=== PATIENT | male | born 1975 | race Two or more races ===

== ENCOUNTER 2022-02-09 09:47 | Outpatient (REF) | payer OTHER, SELFPAY ==
[2022-02-09 11:46] LABS: MANUAL DIFF FLAG NO
[2022-02-09 12:37] LABS: Basophils Percent Auto 0.3 % (0-2); Eosinophils Absolute Auto 0.1 X10*3/uL (0.0-0.4); Hematocrit 39.8 % (42.0-52.0); Hemoglobin 12.7 g/dl (14.0-18.0); Imm Gran Abs Auto 0.15 X10*3/uL (0.00-0.03); Imm Gran Pct Auto 2.1 % (0.0-0.4); Lymphocytes Absolute Auto 1.1 X10*3/uL (1.2-4.9); Lymphocytes Percent Auto 14.6 % (20-40); Mean Corpuscular HGB Conc 31.9 g/dl (31.0-36.0); Mean Corpuscular Volume 78.3 fL (80.0-98.0); Mean Platelet Volume 9.8 fL (9.4-12.4); Monocytes Absolute Auto 0.9 X10*3/uL (0.1-1.2); Monocytes Percent Auto 12.4 % (2-11); Neutrophils Absolute Auto 5.1 x10*3/uL (2.0-8.3); Neutrophils Percent Auto 69.6 % (45-73); Platelet Count 367 X10*3/uL (160-400); Red Blood Count 5.08 X10*6/uL (4.60-5.80); Red Cell Distribution Width 13.5 % (11.0-16.0); White Blood Count 7.3 X10*3/uL (4.8-10.8)
[2022-02-09 12:40] LABS: Appearance Urine HAZY; Color Urine YELLOW; Glucose Urine UA NEG (NEG); Leukocyte Esterase Urine NEG (NEG); Nitrite Urine NEG (NEG); Specific Gravity - Urine >= 1.030 (1.005-1.025); Urine Blood 3+ (NEG); Urine Ketones 15 MG/DL (NEG); Urine Protein 2+ MG/DL (NEG-TRACE)
[2022-02-09 13:11] LABS: Alanine Aminotransferase 292 U/L (0-40); Albumin Level 3.3 g/dL (3.5-5.0); Alkaline Phosphatase 55 U/L (39-117); Anion Gap 10 (12-20); Aspartate Amino Transferase 1015 U/L (5-37); Bilirubin Total 0.7 mg/dL (0.0-1.0); Blood Urea Nitrogen 10 mg/dL (9-16); Carbon Dioxide 29 mmol/L (22-29); Chloride 102 mmol/L (96-108); Estimated Glomerular Filt Rate > 60; Glucose Random 84 mg/dL (60-115); Potassium 4.9 mmol/L (3.3-5.1); Sodium 136 mmol/L (135-145); Total Protein 6.1 g/dL (6.5-8.0)
[2022-02-09 13:29] LABS: Thyroid Stimulating Hormone 1.99 uIU/mL (0.32-4.0)
[2022-02-09 13:57] LABS: WBC Urine 0 /HPF (0-4)
[2022-02-09 13:58] LABS: Mucus Urine 2+ /LPF
[2022-02-09 14:20] LABS: Creatinine Urine 151.78 mg/dL; Protein/Creatinine Ratio, Ur 1.13 (<0.2); Total Protein Urine Random 171 mg/dL (<12)
[2022-02-10 05:01] LABS: Hepatitis A Antibody IgG REACTIVE (Nonreactive); Hepatitis A Antibody IgM 0.44 Index (0-0.79); ~Hepatitis A Antibody IgG 8.59 S/CO (0.00-0.99); ~Hepatitis A Antibody IgM Nonreactive (Nonreactive)
[2022-02-10 20:07] LABS: Complement C3 104 mg/dL (82-185)
[2022-02-11 22:12] LABS: TS Negative Control Passed; TS Panel A 0; TS Panel B 0; TS Positive Control Passed; TSpotTB Negative (Negative)
[2022-02-14 14:50] LABS: Anti DNA DS Antibody <1 IU/mL; Antibody to SS-A Antigen <1.0 NEG AI (<1.0 NEG); Antibody to SS-B Antigen <1.0 NEG AI (<1.0 NEG); SM/Ribonucleoprotein Ab <1.0 NEG AI (<1.0 NEG); Smith Protein <1.0 NEG AI (<1.0 NEG)
[2022-02-21 19:16] LABS: EJ Autoantibodies NOT DETECTED (NOT DETECTED); JO-1 Antibody <1.0 NEG AI (<1.0 NEG); MI 2 Autoantibodies NOT DETECTED (NOT DETECTED); OJ Autoantibodies NOT DETECTED (NOT DETECTED); PL 12 Autoantibodies NOT DETECTED (NOT DETECTED); PL 7 Autoantibodies NOT DETECTED (NOT DETECTED)
== END 2022-02-09 09:48 | disposition home or self-care (01) ==
LOC: HO.LAB 09:47
PROVIDERS: Visit Provider Internal Medicine Rheumatology
DX: M62.82 Rhabdomyolysis (principal); M62.81 Muscle weakness (generalized); R74.8 Abnormal levels of other serum enzymes; R74.01 Elevation of levels of liver transaminase levels; R21 Rash and other nonspecific skin eruption; R76.8 Other specified abnormal immunological findings in serum
CPT/HCPCS: 36415; 80053; 81001; 82550; 84156; 84443; 85025; 86140; 86160; 86225; 86235; 86481; 86708; 86709; 99202

== ENCOUNTER 2022-02-13 12:10 | Outpatient (REF) | payer OTHER, SELFPAY ==
[2022-02-13 13:39] LABS: Anion Gap 14 (12-20); Blood Urea Nitrogen 11 mg/dL (9-16); Calcium 9.4 mg/dL (8.4-10.2); Carbon Dioxide 25 mmol/L (22-29); Chloride 102 mmol/L (96-108); Estimated Glomerular Filt Rate > 60; Glucose Random 111 mg/dL (60-115); Potassium 4.2 mmol/L (3.3-5.1); Sodium 137 mmol/L (135-145)
[2022-02-13 14:02] LABS: Appearance Urine CLEAR; Color Urine YELLOW; Glucose Urine UA NEG (NEG); Leukocyte Esterase Urine NEG (NEG); Nitrite Urine NEG (NEG); Specific Gravity - Urine <= 1.005 (1.005-1.025); Urine Blood 3+ (NEG); Urine Ketones NEG (NEG); Urine Protein TRACE MG/DL (NEG-TRACE)
[2022-02-13 14:26] LABS: Squamous Epithelial Cell Urine TRACE /LPF; WBC Urine 0 /HPF (0-4)
== END 2022-02-13 12:11 | disposition home or self-care (01) ==
LOC: HO.LAB 12:10
PROVIDERS: Visit Provider Internal Medicine Rheumatology
DX: R74.8 Abnormal levels of other serum enzymes (principal); M62.82 Rhabdomyolysis
CPT/HCPCS: 36415; 80048; 81001; 82550

== ENCOUNTER 2022-02-24 13:14 | Outpatient (REF) | payer OTHER, SELFPAY ==
[2022-02-24 14:30] LABS: Anion Gap 11 (12-20); Blood Urea Nitrogen 13 mg/dL (9-16); Calcium 9.2 mg/dL (8.4-10.2); Carbon Dioxide 28 mmol/L (22-29); Chloride 101 mmol/L (96-108); Estimated Glomerular Filt Rate > 60; Glucose Random 101 mg/dL (60-115); Potassium 4.4 mmol/L (3.3-5.1); Sodium 136 mmol/L (135-145)
[2022-02-24 14:35] LABS: Appearance Urine CLEAR; Color Urine STRAW; Glucose Urine UA NEG (NEG); Leukocyte Esterase Urine NEG (NEG); Nitrite Urine NEG (NEG); PH 5.5 (5.0-8.0); Specific Gravity - Urine <= 1.005 (1.005-1.025); Urine Blood 3+ (NEG); Urine Ketones NEG (NEG); Urine Protein NEG (NEG-TRACE)
[2022-02-24 14:46] LABS: Squamous Epithelial Cell Urine TRACE /LPF; WBC Urine 0 /HPF (0-4)
== END 2022-02-24 13:15 | disposition home or self-care (01) ==
LOC: HO.LAB 13:14
PROVIDERS: Visit Provider Internal Medicine Rheumatology
DX: M62.82 Rhabdomyolysis (principal); R74.8 Abnormal levels of other serum enzymes; R76.8 Other specified abnormal immunological findings in serum; M62.81 Muscle weakness (generalized); Z79.899 Other long term (current) drug therapy
CPT/HCPCS: 36415; 80048; 81001; 82550

== ENCOUNTER → 2022-02-28 08:59 | Outpatient (BNVA) | payer OTHER, SELFPAY | PROVIDERS: Visit Provider Internal Medicine Rheumatology | DX: M33.90 Dermatopolymyositis, unspecified, organ involvement unspecified (principal); R74.01 Elevation of levels of liver transaminase levels; R13.10 Dysphagia, unspecified; R76.8 Other specified abnormal immunological findings in serum; Z79.899 Other long term (current) drug therapy | CPT/HCPCS: 99212 ==

== ENCOUNTER 2022-03-17 10:08 | Outpatient (REF) | payer OTHER, SELFPAY ==
[2022-03-17 10:19] LABS: MANUAL DIFF FLAG NO
[2022-03-17 10:41] LABS: Basophils Percent Auto 0.1 % (0-2); Eosinophils Percent Auto 0.2 % (0-4); Hematocrit 42.6 % (42.0-52.0); Hemoglobin 13.2 g/dl (14.0-18.0); Imm Gran Abs Auto 0.28 X10*3/uL (0.00-0.03); Imm Gran Pct Auto 2.5 % (0.0-0.4); Lymphocytes Percent Auto 18.4 % (20-40); Mean Corpuscular Hemoglobin 25.3 pg (27.0-33.0); Mean Corpuscular Volume 81.8 fL (80.0-98.0); Monocytes Absolute Auto 0.9 X10*3/uL (0.1-1.2); Monocytes Percent Auto 8.5 % (2-11); Neutrophils Absolute Auto 7.7 x10*3/uL (2.0-8.3); Neutrophils Percent Auto 70.3 % (45-73); Platelet Count 309 X10*3/uL (160-400); Red Blood Count 5.21 X10*6/uL (4.60-5.80)
[2022-03-17 11:11] LABS: Anion Gap 12 (12-20); Blood Urea Nitrogen 15 mg/dL (9-16); Calcium 9.2 mg/dL (8.4-10.2); Carbon Dioxide 28 mmol/L (22-29); Chloride 101 mmol/L (96-108); Estimated Glomerular Filt Rate > 60; Glucose Random 105 mg/dL (60-115); Potassium 4.7 mmol/L (3.3-5.1); Sodium 136 mmol/L (135-145)
[2022-03-17 11:25] LABS: Appearance Urine CLEAR; Color Urine YELLOW; Glucose Urine UA NEG (NEG); Leukocyte Esterase Urine NEG (NEG); Nitrite Urine NEG (NEG); PH 5.5 (5.0-8.0); Urine Blood TRACE (NEG); Urine Ketones NEG (NEG); Urine Protein NEG (NEG-TRACE)
[2022-03-17 11:34] LABS: PSA,Total (Free>4and<10) 0.27 ng/mL (0.00-4.00)
[2022-03-17 12:22] LABS: RBC Urine 0-2 /HPF (0); Squamous Epithelial Cell Urine TRACE /LPF; WBC Urine 0-2 /HPF (0-4)
== END 2022-03-17 10:09 | disposition home or self-care (01) ==
LOC: HO.LAB 10:08
PROVIDERS: PCP Physician Assistant; Visit Provider Internal Medicine Rheumatology
DX: Z12.5 Encounter for screening for malignant neoplasm of prostate (principal); M33.90 Dermatopolymyositis, unspecified, organ involvement unspecified; R35.0 Frequency of micturition; Z79.899 Other long term (current) drug therapy
CPT/HCPCS: 36415; 80048; 81001; 82550; 84153; 85025

== ENCOUNTER 2022-03-20 09:11 | Outpatient (REF) | payer OTHER, SELFPAY | END 2022-03-20 09:12 | disposition home or self-care (01) | LOC: HO.MDS 09:11 | PROVIDERS: Visit Provider Internal Medicine Rheumatology | DX: M33.90 Dermatopolymyositis, unspecified, organ involvement unspecified (principal) | CPT/HCPCS: 96365; 96366; J1569 ==

== ENCOUNTER 2022-03-21 09:07 | Outpatient (REF) | payer OTHER, SELFPAY | END 2022-03-21 09:08 | disposition home or self-care (01) | LOC: HO.MDS 09:07 | PROVIDERS: Visit Provider Internal Medicine Rheumatology | DX: M33.90 Dermatopolymyositis, unspecified, organ involvement unspecified (principal) | CPT/HCPCS: 96365; 96366; J1569 ==

== ENCOUNTER → 2022-03-22 08:51 | Outpatient (BNVA) | payer OTHER, SELFPAY | PROVIDERS: PCP Physician Assistant; Visit Provider Internal Medicine Rheumatology | DX: M33.90 Dermatopolymyositis, unspecified, organ involvement unspecified (principal); R21 Rash and other nonspecific skin eruption; Z79.899 Other long term (current) drug therapy | CPT/HCPCS: 99212 ==

== ENCOUNTER 2022-04-03 10:07 | Outpatient (REF) | payer OTHER, SELFPAY ==
[2022-04-03 10:17] LABS: MANUAL DIFF FLAG NO
[2022-04-03 10:46] LABS: Basophils Percent Auto 0.3 % (0-2); Eosinophils Percent Auto 0.4 % (0-4); Hematocrit 43.2 % (42.0-52.0); Hemoglobin 13.4 g/dl (14.0-18.0); Imm Gran Abs Auto 0.13 X10*3/uL (0.00-0.03); Imm Gran Pct Auto 1.2 % (0.0-0.4); Lymphocytes Absolute Auto 1.8 X10*3/uL (1.2-4.9); Mean Corpuscular Hemoglobin 25.6 pg (27.0-33.0); Mean Corpuscular Volume 82.6 fL (80.0-98.0); Mean Platelet Volume 9.8 fL (9.4-12.4); Monocytes Absolute Auto 0.9 X10*3/uL (0.1-1.2); Monocytes Percent Auto 8.3 % (2-11); Neutrophils Absolute Auto 8.3 x10*3/uL (2.0-8.3); Neutrophils Percent Auto 73.8 % (45-73); Platelet Count 227 X10*3/uL (160-400); Red Blood Count 5.23 X10*6/uL (4.60-5.80); Red Cell Distribution Width 17.2 % (11.0-16.0); White Blood Count 11.2 X10*3/uL (4.8-10.8)
[2022-04-03 11:04] LABS: Alanine Aminotransferase 57 U/L (0-40); Albumin Level 3.7 g/dL (3.5-5.0); Alkaline Phosphatase 72 U/L (39-117); Anion Gap 12 (12-20); Aspartate Amino Transferase 69 U/L (5-37); Bilirubin Total 0.8 mg/dL (0.0-1.0); Blood Urea Nitrogen 12 mg/dL (9-16); Calcium 9.2 mg/dL (8.4-10.2); Carbon Dioxide 28 mmol/L (22-29); Chloride 102 mmol/L (96-108); Estimated Glomerular Filt Rate > 60; Glucose Random 99 mg/dL (60-115); Potassium 4.7 mmol/L (3.3-5.1); Sodium 137 mmol/L (135-145); Total Protein 7.7 g/dL (6.5-8.0)
== END 2022-04-03 10:08 | disposition home or self-care (01) ==
LOC: HO.LAB 10:07
PROVIDERS: PCP Physician Assistant; Visit Provider Internal Medicine Rheumatology
DX: M33.90 Dermatopolymyositis, unspecified, organ involvement unspecified (principal); Z79.899 Other long term (current) drug therapy
CPT/HCPCS: 36415; 80053; 82550; 85025

== ENCOUNTER → 2022-04-04 08:11 | Outpatient (BNVA) | payer OTHER, SELFPAY | PROVIDERS: PCP Pediatrics Adolescent Medicine; Visit Provider Internal Medicine Rheumatology | DX: M33.90 Dermatopolymyositis, unspecified, organ involvement unspecified (principal); R74.01 Elevation of levels of liver transaminase levels; R13.10 Dysphagia, unspecified; Z79.52 Long term (current) use of systemic steroids; Z79.899 Other long term (current) drug therapy | CPT/HCPCS: 99212 ==

== ENCOUNTER 2022-04-17 08:58 | Outpatient (REF) | payer OTHER, SELFPAY | END 2022-04-17 08:59 | disposition home or self-care (01) | LOC: HO.MDS 08:58 | PROVIDERS: Visit Provider Internal Medicine Rheumatology | DX: M33.90 Dermatopolymyositis, unspecified, organ involvement unspecified (principal) | CPT/HCPCS: 96365; 96366; J1569 ==

== ENCOUNTER 2022-04-18 08:40 | Outpatient (REF) | payer OTHER, SELFPAY | END 2022-04-18 08:41 | disposition home or self-care (01) | LOC: HO.MDS 08:40 | PROVIDERS: PCP Physician Assistant; Visit Provider Internal Medicine Rheumatology | DX: M33.90 Dermatopolymyositis, unspecified, organ involvement unspecified (principal) | CPT/HCPCS: 96365; 96366; J1569 ==

== ENCOUNTER 2022-04-24 12:40 | Outpatient (REF) | payer OTHER, SELFPAY ==
[2022-04-24 12:54] LABS: MANUAL DIFF FLAG NO
[2022-04-24 13:25] LABS: Basophils Percent Auto 0.4 % (0-2); Eosinophils Absolute Auto 0.1 X10*3/uL (0.0-0.4); Eosinophils Percent Auto 0.8 % (0-4); Hematocrit 43.8 % (42.0-52.0); Hemoglobin 13.7 g/dl (14.0-18.0); Imm Gran Abs Auto 0.09 X10*3/uL (0.00-0.03); Imm Gran Pct Auto 1.2 % (0.0-0.4); Lymphocytes Absolute Auto 1.4 X10*3/uL (1.2-4.9); Lymphocytes Percent Auto 18.3 % (20-40); Mean Corpuscular HGB Conc 31.3 g/dl (31.0-36.0); Mean Corpuscular Hemoglobin 25.6 pg (27.0-33.0); Mean Corpuscular Volume 81.9 fL (80.0-98.0); Mean Platelet Volume 9.3 fL (9.4-12.4); Monocytes Absolute Auto 0.6 X10*3/uL (0.1-1.2); Monocytes Percent Auto 8.3 % (2-11); Neutrophils Absolute Auto 5.5 x10*3/uL (2.0-8.3); Platelet Count 256 X10*3/uL (160-400); Red Blood Count 5.35 X10*6/uL (4.60-5.80); Red Cell Distribution Width 16.7 % (11.0-16.0); White Blood Count 7.7 X10*3/uL (4.8-10.8)
[2022-04-24 13:42] LABS: Alanine Aminotransferase 21 U/L (0-40); Albumin Level 3.5 g/dL (3.5-5.0); Alkaline Phosphatase 58 U/L (39-117); Anion Gap 12 (12-20); Aspartate Amino Transferase 26 U/L (5-37); Bilirubin Total 0.7 mg/dL (0.0-1.0); Blood Urea Nitrogen 13 mg/dL (9-16); C Reactive Protein 1.98 mg/dL (< or = 0.50); Calcium 9.4 mg/dL (8.4-10.2); Carbon Dioxide 29 mmol/L (22-29); Chloride 102 mmol/L (96-108); Estimated Glomerular Filt Rate > 60; Glucose Random 86 mg/dL (60-115); Sodium 138 mmol/L (135-145); Total Protein 8.7 g/dL (6.5-8.0)
== END 2022-04-24 12:41 | disposition home or self-care (01) ==
LOC: HO.LAB 12:40
PROVIDERS: Visit Provider Internal Medicine Rheumatology
DX: M33.90 Dermatopolymyositis, unspecified, organ involvement unspecified (principal); R74.01 Elevation of levels of liver transaminase levels; Z79.899 Other long term (current) drug therapy
CPT/HCPCS: 36415; 80053; 82550; 85025; 86140

== ENCOUNTER → 2022-04-25 09:33 | Outpatient (BNVA) | payer OTHER, SELFPAY | PROVIDERS: PCP Physician Assistant; Visit Provider Internal Medicine Rheumatology | DX: M33.90 Dermatopolymyositis, unspecified, organ involvement unspecified (principal); Z79.899 Other long term (current) drug therapy | CPT/HCPCS: 99212 ==

== ENCOUNTER 2022-05-24 08:52 | Outpatient (REF) | payer OTHER, SELFPAY | END 2022-05-24 08:53 | disposition home or self-care (01) | LOC: HO.MDS 08:52 | PROVIDERS: PCP Physician Assistant; Visit Provider Internal Medicine Rheumatology | DX: M33.90 Dermatopolymyositis, unspecified, organ involvement unspecified (principal) | CPT/HCPCS: 96365; 96366; J1569 ==

== ENCOUNTER 2022-05-25 06:58 | Outpatient (REF) | payer OTHER, SELFPAY | END 2022-05-25 06:59 | disposition home or self-care (01) | LOC: HO.MDS 06:58 | PROVIDERS: Visit Provider Internal Medicine Rheumatology | DX: M33.90 Dermatopolymyositis, unspecified, organ involvement unspecified (principal) | CPT/HCPCS: 96365; 96366; J1569 ==

== ENCOUNTER → 2022-05-31 11:02 | Outpatient (BNVA) | payer OTHER, SELFPAY | PROVIDERS: PCP Physician Assistant; Referring Provider Physician Assistant; Visit Provider Nurse Practitioner | DX: R13.10 Dysphagia, unspecified (principal); M33.90 Dermatopolymyositis, unspecified, organ involvement unspecified | CPT/HCPCS: 99202; 99212 ==

== ENCOUNTER 2022-06-12 11:42 | Outpatient (REF) | payer OTHER, SELFPAY ==
[2022-06-12 11:49] LABS: MANUAL DIFF FLAG NO
[2022-06-12 12:01] LABS: Basophils Percent Auto 0.4 % (0-2); Eosinophils Absolute Auto 0.1 X10*3/uL (0.0-0.4); Eosinophils Percent Auto 0.6 % (0-4); Hematocrit 47.7 % (42.0-52.0); Imm Gran Abs Auto 0.13 X10*3/uL (0.00-0.03); Imm Gran Pct Auto 1.2 % (0.0-0.4); Lymphocytes Absolute Auto 1.5 X10*3/uL (1.2-4.9); Lymphocytes Percent Auto 13.5 % (20-40); Mean Corpuscular HGB Conc 31.4 g/dl (31.0-36.0); Mean Corpuscular Hemoglobin 25.8 pg (27.0-33.0); Monocytes Absolute Auto 1.2 X10*3/uL (0.1-1.2); Monocytes Percent Auto 10.6 % (2-11); Neutrophils Absolute Auto 8.1 x10*3/uL (2.0-8.3); Neutrophils Percent Auto 73.7 % (45-73); Platelet Count 301 X10*3/uL (160-400); Red Blood Count 5.82 X10*6/uL (4.60-5.80); Red Cell Distribution Width 14.6 % (11.0-16.0)
== END 2022-06-12 11:43 | disposition home or self-care (01) ==
LOC: HO.LAB 11:42
PROVIDERS: Visit Provider Internal Medicine Rheumatology
DX: R13.10 Dysphagia, unspecified (principal); M33.90 Dermatopolymyositis, unspecified, organ involvement unspecified; Z79.899 Other long term (current) drug therapy
CPT/HCPCS: 36415; 82550; 85025; 99212

== ENCOUNTER 2022-06-27 07:16 | Outpatient (REF) | payer OTHER, SELFPAY | END 2022-06-27 07:17 | disposition home or self-care (01) | LOC: HO.MDS 07:16 | PROVIDERS: Visit Provider Internal Medicine Rheumatology | DX: M33.90 Dermatopolymyositis, unspecified, organ involvement unspecified (principal); L40.9 Psoriasis, unspecified | CPT/HCPCS: 96365; 96366; J1569 ==

== ENCOUNTER 2022-06-28 07:05 | Outpatient (REF) | payer OTHER, SELFPAY | END 2022-06-28 07:06 | disposition home or self-care (01) | LOC: HO.MDS 07:05 | PROVIDERS: Visit Provider Internal Medicine Rheumatology | DX: M33.90 Dermatopolymyositis, unspecified, organ involvement unspecified (principal) | CPT/HCPCS: 96365; 96366; J1569 ==

== ENCOUNTER 2022-07-10 16:32 | Outpatient (REF) | payer OTHER, SELFPAY ==
[2022-07-10 16:44] LABS: MANUAL DIFF FLAG NO
[2022-07-10 16:53] LABS: Basophils Percent Auto 0.4 % (0-2); Hematocrit 43.5 % (42.0-52.0); Hemoglobin 13.7 g/dl (14.0-18.0); Imm Gran Abs Auto 0.21 X10*3/uL (0.00-0.03); Imm Gran Pct Auto 2.2 % (0.0-0.4); Lymphocytes Absolute Auto 0.7 X10*3/uL (1.2-4.9); Lymphocytes Percent Auto 7.5 % (20-40); Mean Corpuscular HGB Conc 31.5 g/dl (31.0-36.0); Mean Corpuscular Hemoglobin 25.8 pg (27.0-33.0); Mean Corpuscular Volume 81.8 fL (80.0-98.0); Mean Platelet Volume 9.2 fL (9.4-12.4); Monocytes Absolute Auto 0.3 X10*3/uL (0.1-1.2); Monocytes Percent Auto 2.9 % (2-11); Neutrophils Absolute Auto 8.2 x10*3/uL (2.0-8.3); Platelet Count 303 X10*3/uL (160-400); Red Blood Count 5.32 X10*6/uL (4.60-5.80); Red Cell Distribution Width 13.9 % (11.0-16.0); White Blood Count 9.4 X10*3/uL (4.8-10.8)
== END 2022-07-10 16:33 | disposition home or self-care (01) ==
LOC: HO.LAB 16:32
PROVIDERS: Visit Provider Internal Medicine Rheumatology
DX: M33.90 Dermatopolymyositis, unspecified, organ involvement unspecified (principal); L30.9 Dermatitis, unspecified; R21 Rash and other nonspecific skin eruption; Z79.899 Other long term (current) drug therapy
CPT/HCPCS: 36415; 82550; 85025; 99212

== ENCOUNTER → 2022-07-25 07:48 | Outpatient (BNVA) | payer OTHER, SELFPAY | PROVIDERS: PCP Physician Assistant; Visit Provider Internal Medicine Rheumatology | DX: M33.90 Dermatopolymyositis, unspecified, organ involvement unspecified (principal); Z79.899 Other long term (current) drug therapy | CPT/HCPCS: 99212 ==

== ENCOUNTER 2022-07-26 07:07 | Outpatient (REF) | payer OTHER, SELFPAY | END 2022-07-26 07:08 | disposition home or self-care (01) | LOC: HO.MDS 07:07 | PROVIDERS: Visit Provider Internal Medicine Rheumatology | DX: M33.90 Dermatopolymyositis, unspecified, organ involvement unspecified (principal) | CPT/HCPCS: 96365; 96366; J1569 ==

== ENCOUNTER 2022-07-27 07:07 | Outpatient (REF) | payer OTHER, SELFPAY | END 2022-07-27 07:08 | disposition home or self-care (01) | LOC: HO.MDS 07:07 | PROVIDERS: Visit Provider Internal Medicine Rheumatology | DX: M33.13 Other dermatomyositis without myopathy (principal) | CPT/HCPCS: 96365; 96366; J1569 ==

== ENCOUNTER 2022-08-01 07:15 | Outpatient (REF) | payer OTHER, SELFPAY | END 2022-08-01 07:16 | disposition home or self-care (01) | LOC: HO.MDS 07:15 | PROVIDERS: Visit Provider Internal Medicine Rheumatology | DX: M33.13 Other dermatomyositis without myopathy (principal) | CPT/HCPCS: 96365; 96366; J1569 ==

== ENCOUNTER 2022-08-02 07:09 | Outpatient (REF) | payer OTHER, SELFPAY | END 2022-08-02 07:10 | disposition home or self-care (01) | LOC: HO.MDS 07:09 | PROVIDERS: Visit Provider Internal Medicine Rheumatology | DX: M33.13 Other dermatomyositis without myopathy (principal) | CPT/HCPCS: 96365; 96366; J1569 ==

== ENCOUNTER 2022-08-03 07:10 | Outpatient (REF) | payer OTHER, SELFPAY | END 2022-08-03 07:11 | disposition home or self-care (01) | LOC: HO.MDS 07:10 | PROVIDERS: Visit Provider Internal Medicine Rheumatology | DX: M33.13 Other dermatomyositis without myopathy (principal) | CPT/HCPCS: 96365; 96366; J1569 ==

== ENCOUNTER 2022-08-08 10:25 | Outpatient (REF) | payer OTHER, SELFPAY ==
[2022-08-08 10:43] LABS: MANUAL DIFF FLAG NO
[2022-08-08 11:08] LABS: Basophils Percent Auto 0.3 % (0-2); Eosinophils Percent Auto 0.1 % (0-4); Hematocrit 47.8 % (42.0-52.0); Hemoglobin 14.7 g/dl (14.0-18.0); Imm Gran Pct Auto 1.5 % (0.0-0.4); Lymphocytes Absolute Auto 1.2 X10*3/uL (1.2-4.9); Lymphocytes Percent Auto 17.8 % (20-40); Mean Corpuscular HGB Conc 30.8 g/dl (31.0-36.0); Mean Corpuscular Hemoglobin 25.8 pg (27.0-33.0); Mean Corpuscular Volume 83.9 fL (80.0-98.0); Mean Platelet Volume 9.3 fL (9.4-12.4); Monocytes Absolute Auto 0.6 X10*3/uL (0.1-1.2); Monocytes Percent Auto 8.8 % (2-11); Neutrophils Absolute Auto 4.9 x10*3/uL (2.0-8.3); Neutrophils Percent Auto 71.5 % (45-73); Platelet Count 193 X10*3/uL (160-400); Red Cell Distribution Width 15.6 % (11.0-16.0); White Blood Count 6.9 X10*3/uL (4.8-10.8)
== END 2022-08-08 10:26 | disposition home or self-care (01) ==
LOC: HO.LAB 10:25
PROVIDERS: PCP Physician Assistant; Visit Provider Internal Medicine Rheumatology
DX: M33.90 Dermatopolymyositis, unspecified, organ involvement unspecified (principal); Z79.899 Other long term (current) drug therapy
CPT/HCPCS: 36415; 82550; 85025

== ENCOUNTER 2022-08-18 11:52 | Outpatient (REF) | payer OTHER, SELFPAY ==
[2022-08-18 12:04] LABS: MANUAL DIFF FLAG NO
[2022-08-18 12:35] LABS: Basophils Percent Auto 0.1 % (0-2); Hematocrit 48.7 % (42.0-52.0); Hemoglobin 15.2 g/dl (14.0-18.0); Imm Gran Pct Auto 1.4 % (0.0-0.4); Lymphocytes Absolute Auto 0.8 X10*3/uL (1.2-4.9); Lymphocytes Percent Auto 10.7 % (20-40); Mean Corpuscular HGB Conc 31.2 g/dl (31.0-36.0); Mean Corpuscular Hemoglobin 26.2 pg (27.0-33.0); Mean Platelet Volume 9.1 fL (9.4-12.4); Monocytes Absolute Auto 0.5 X10*3/uL (0.1-1.2); Monocytes Percent Auto 6.6 % (2-11); Neutrophils Absolute Auto 5.9 x10*3/uL (2.0-8.3); Neutrophils Percent Auto 81.2 % (45-73); Platelet Count 256 X10*3/uL (160-400); Red Cell Distribution Width 15.8 % (11.0-16.0); White Blood Count 7.2 X10*3/uL (4.8-10.8)
== END 2022-08-18 11:53 | disposition home or self-care (01) ==
LOC: HO.LAB 11:52
PROVIDERS: PCP Physician Assistant; Visit Provider Internal Medicine Rheumatology
DX: M33.90 Dermatopolymyositis, unspecified, organ involvement unspecified (principal); Z79.899 Other long term (current) drug therapy
CPT/HCPCS: 36415; 82550; 85025

== ENCOUNTER → 2022-08-21 08:56 | Outpatient (BNVA) | payer OTHER, SELFPAY | PROVIDERS: PCP Physician Assistant; Referring Provider Physician Assistant; Visit Provider Internal Medicine Rheumatology | DX: M33.90 Dermatopolymyositis, unspecified, organ involvement unspecified (principal); Z79.899 Other long term (current) drug therapy | CPT/HCPCS: 99212 ==

== ENCOUNTER 2022-08-21 13:00 | Outpatient (RCR) | payer OTHER, SELFPAY ==
--- NOTE | 2022-07-31 13:58 | MHC.PT.EP ---
[facility] [place] [facility] [place] Office [place] Office [address] Dalia Tinsley [address] [phone] F: [phone] F: [phone] F: [phone] F: [phone] Physical Therapy Plan of Care Date of Evaluation: Date of Surgery: Diagnosis: Dermatomyositis - Upper body and lower body strengthening Assessment: Patient is a 46 year old R handed male who presents with s/s consistent with dermatomyositis with focus on upper body and lower body strengthening. He worked at [employer] before diagnosis with daily job demands including standing, walking, lifting, pushing. Patient past medical history is otherwise unremarkable. Current impairments include pain, posture, ROM, strength, activity tolerance and functional mobility. Functional limitations include decreased ability to stand, walk, lift, negotiate stairs, push, pull, squat and transfer. Patient is motivated with good rehab potential. Skilled PT will address impairments and functional limitations in order to achieve goals. Frequency and Duration: The patient will be seen 1x/week for 6 weeks Short Term Goals: I with HEP - 2 weeks Able to perform 8 sit <> stands in 30 seconds - 3 weeks Able to bike 12 minutes without rest at L4 - 3 weeks Manager Printing Goals: SPADI 60 or less out of 130 - 5 weeks LE and UE strength 4/5 grossly - 6 weeks Able to work 4 hour shifts without increased pain, with functional amount of fatigue - 6 weeks Treatment Plan: Modalities to reduce pain, spasms and effusion. Manual therapy to restore motion and function. Therapeutic exercise to improve strength and flexibility. Neuromuscular re-education for posture and balance. Therapeutic activities to return to functional activities of daily living. Electronically signed by: Erick Singh, PT Please sign and return to therapist. Thank you for your referral.
--- NOTE | 2022-09-05 11:16 | MHC.PT.DC ---
[facility] [place] Office [place] Office [place] Office [address] Dalia Tinsley [address] [phone] F: [phone] F: [phone] F: [phone] F: [phone] Physical Therapy Discharge Report Diagnosis: Dermatomyositis - Upper body and lower body strengthening Date of Surgery: Date of Evaluation: 07/31/22 Date of Discharge: 09/05/22 Treatments to Date: 6 Cancellations to Date: No Shows to Date: Discharge Status: Improved Function Independent with HEP Discharge Summary: He will continue exclusively with HEP at this time. He is able to tolerate increase in resistance or sets with exercises with fewer rest breaks showing gradually improving exercise tolerance/endurance. I consistently changed his program to work different muscle groups alternating to prevent fatigue. He still needed some cues with proper form consistently with lifting, as he lifts a lot at work. I am helping him build endurance to work on more lifting. Electronically signed by: Erick Singh PT Please sign and return to therapist. Thank you for your referral.
== END 2022-09-05 11:17 | disposition home or self-care (01) ==
LOC: HO.PTCHIC 13:00
PROVIDERS: PCP Physician Assistant; Visit Provider Internal Medicine Rheumatology
DX: M33.90 Dermatopolymyositis, unspecified, organ involvement unspecified (principal)
CPT/HCPCS: 97110; 97161; 97530

== ENCOUNTER 2022-08-28 07:01 | Outpatient (REF) | payer OTHER, SELFPAY | END 2022-08-28 07:02 | disposition home or self-care (01) | LOC: HO.MDS 07:01 | PROVIDERS: Visit Provider Internal Medicine Rheumatology | DX: M33.90 Dermatopolymyositis, unspecified, organ involvement unspecified (principal) | CPT/HCPCS: 96365; 96366; J1569 ==

== ENCOUNTER 2022-08-29 07:02 | Outpatient (REF) | payer OTHER, SELFPAY | END 2022-08-29 07:03 | disposition home or self-care (01) | LOC: HO.MDS 07:02 | PROVIDERS: Visit Provider Internal Medicine Rheumatology | DX: M33.90 Dermatopolymyositis, unspecified, organ involvement unspecified (principal) | CPT/HCPCS: 96365; 96366; J1569 ==

== ENCOUNTER 2022-08-30 07:05 | Outpatient (REF) | payer OTHER, SELFPAY | END 2022-08-30 07:06 | disposition home or self-care (01) | LOC: HO.MDS 07:05 | PROVIDERS: Visit Provider Internal Medicine Rheumatology | DX: M33.90 Dermatopolymyositis, unspecified, organ involvement unspecified (principal) | CPT/HCPCS: 96365; 96366; J1569 ==

== ENCOUNTER 2022-08-31 06:59 | Outpatient (REF) | payer OTHER, SELFPAY | END 2022-08-31 07:00 | disposition home or self-care (01) | LOC: HO.MDS 06:59 | PROVIDERS: Visit Provider Internal Medicine Rheumatology | DX: M33.90 Dermatopolymyositis, unspecified, organ involvement unspecified (principal) | CPT/HCPCS: 96365; 96366; J1569 ==

== ENCOUNTER 2022-09-01 06:59 | Outpatient (REF) | payer OTHER, SELFPAY | END 2022-09-01 07:00 | disposition home or self-care (01) | LOC: HO.MDS 06:59 | PROVIDERS: Visit Provider Internal Medicine Rheumatology | DX: M33.90 Dermatopolymyositis, unspecified, organ involvement unspecified (principal) | CPT/HCPCS: 96365; 96366; J1569 ==

== ENCOUNTER 2022-09-26 06:53 | Outpatient (REF) | payer OTHER, SELFPAY | END 2022-09-26 06:54 | disposition home or self-care (01) | LOC: HO.MDS 06:53 | PROVIDERS: Visit Provider Internal Medicine Rheumatology | DX: M33.90 Dermatopolymyositis, unspecified, organ involvement unspecified (principal); R13.10 Dysphagia, unspecified | CPT/HCPCS: 96365; 96366; J1569 ==

== ENCOUNTER 2022-09-27 06:48 | Outpatient (REF) | payer OTHER, SELFPAY | END 2022-09-27 06:49 | disposition home or self-care (01) | LOC: HO.MDS 06:48 | PROVIDERS: Visit Provider Internal Medicine Rheumatology | DX: M33.90 Dermatopolymyositis, unspecified, organ involvement unspecified (principal) | CPT/HCPCS: 96365; 96366; J1569 ==

== ENCOUNTER 2022-09-28 07:08 | Outpatient (REF) | payer OTHER, SELFPAY | END 2022-09-28 07:09 | disposition home or self-care (01) | LOC: HO.MDS 07:08 | PROVIDERS: Visit Provider Internal Medicine Rheumatology | DX: M33.90 Dermatopolymyositis, unspecified, organ involvement unspecified (principal) | CPT/HCPCS: 96365; 96366; J1569 ==

== ENCOUNTER 2022-09-29 06:50 | Outpatient (REF) | payer OTHER, SELFPAY ==
[2022-09-29 10:06] LABS: MANUAL DIFF FLAG NO
[2022-09-29 10:19] LABS: Basophils Percent Auto 0.4 % (0-2); Hematocrit 44.5 % (42.0-52.0); Hemoglobin 14.4 g/dl (14.0-18.0); Imm Gran Abs Auto 0.09 X10*3/uL (0.00-0.03); Imm Gran Pct Auto 1.2 % (0.0-0.4); Lymphocytes Absolute Auto 0.9 X10*3/uL (1.2-4.9); Lymphocytes Percent Auto 11.7 % (20-40); Mean Corpuscular HGB Conc 32.4 g/dl (31.0-36.0); Mean Corpuscular Hemoglobin 27.1 pg (27.0-33.0); Mean Corpuscular Volume 83.6 fL (80.0-98.0); Mean Platelet Volume 9.4 fL (9.4-12.4); Monocytes Absolute Auto 0.2 X10*3/uL (0.1-1.2); Monocytes Percent Auto 3.2 % (2-11); Neutrophils Absolute Auto 6.3 x10*3/uL (2.0-8.3); Neutrophils Percent Auto 83.5 % (45-73); Platelet Count 308 X10*3/uL (160-400); Red Blood Count 5.32 X10*6/uL (4.60-5.80); Red Cell Distribution Width 15.6 % (11.0-16.0); White Blood Count 7.5 X10*3/uL (4.8-10.8)
== END 2022-09-29 06:51 | disposition home or self-care (01) ==
LOC: HO.MDS 06:50
PROVIDERS: Visit Provider Internal Medicine Rheumatology
DX: M33.90 Dermatopolymyositis, unspecified, organ involvement unspecified (principal); Z79.899 Other long term (current) drug therapy
CPT/HCPCS: 36415; 82550; 85025; 96365; 96366; J1569

== ENCOUNTER 2022-10-02 06:42 | Outpatient (REF) | payer OTHER, SELFPAY | END 2022-10-02 06:43 | disposition home or self-care (01) | LOC: HO.MDS 06:42 | PROVIDERS: Visit Provider Internal Medicine Rheumatology | DX: M33.90 Dermatopolymyositis, unspecified, organ involvement unspecified (principal) | CPT/HCPCS: 96365; 96366; J1569 ==

== ENCOUNTER 2022-10-03 | Outpatient (REF) | payer OTHER, SELFPAY | END 2022-10-03 00:01 | disposition home or self-care (01) | LOC: CF | PROVIDERS: Visit Provider Internal Medicine Rheumatology | DX: F32.A Depression, unspecified (principal); L73.9 Follicular disorder, unspecified; M33.90 Dermatopolymyositis, unspecified, organ involvement unspecified; Z79.899 Other long term (current) drug therapy | CPT/HCPCS: 99212 ==

== ENCOUNTER 2022-10-16 13:57 | Outpatient (REF) | payer OTHER, SELFPAY ==
--- NOTE | ~2022-10-16 | FL_ITS ---
EXAMINATION: Modified BARIUM SWALLOW CLINICAL INFORMATION: Dysphagia COMPARISON: None TECHNIQUE: Following oral administration of various consistencies of food coated barium by speech therapist fluoroscopy-guided modified barium swallow was obtained in lateral projection with patient upright standing. FINDINGS: On oral administration of various consistencies of food such as puree, pudding, thick barium liquid solid food chicken and cookie all coated with barium there is normal oral mastication of solid food with normal propagation of bolus from the oral cavity through the pharynx into the proximal esophagus. No laryngeal penetration or aspiration seen. No retention of barium seen in the valleculae or piriform sinuses. FLUOROSCOPY TIME: 1.0 minutes DOSE AREA PRODUCT: 1.115 uGy-m2 (microgray-meter squared) FL/FL barium swallow modified IMPRESSION: Unremarkable modified barium swallow.
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
== END 2022-10-16 13:58 | disposition home or self-care (01) ==
LOC: HO.XRAY 13:57
PROVIDERS: Visit Provider Nurse Practitioner
DX: R13.10 Dysphagia, unspecified (principal); M33.90 Dermatopolymyositis, unspecified, organ involvement unspecified
CPT/HCPCS: 74230; 92611

== ENCOUNTER 2022-10-23 07:09 | Outpatient (REF) | payer OTHER, SELFPAY | END 2022-10-23 07:10 | disposition home or self-care (01) | LOC: HO.MDS 07:09 | PROVIDERS: Visit Provider Internal Medicine Rheumatology | DX: M33.90 Dermatopolymyositis, unspecified, organ involvement unspecified (principal) | CPT/HCPCS: 96365; 96366; J1569 ==

== ENCOUNTER 2022-10-24 06:49 | Outpatient (REF) | payer OTHER, SELFPAY | END 2022-10-24 06:50 | disposition home or self-care (01) | LOC: HO.MDS 06:49 | PROVIDERS: Visit Provider Internal Medicine Rheumatology | DX: M33.90 Dermatopolymyositis, unspecified, organ involvement unspecified (principal) | CPT/HCPCS: 96365; 96366; J1569 ==

== ENCOUNTER 2022-10-25 06:54 | Outpatient (REF) | payer OTHER, SELFPAY | END 2022-10-25 06:55 | disposition home or self-care (01) | LOC: HO.MDS 06:54 | PROVIDERS: Visit Provider Internal Medicine Rheumatology | DX: M33.90 Dermatopolymyositis, unspecified, organ involvement unspecified (principal) | CPT/HCPCS: 96365; 96366; J1569 ==

== ENCOUNTER 2022-10-26 06:53 | Outpatient (REF) | payer OTHER, SELFPAY | END 2022-10-26 06:54 | disposition home or self-care (01) | LOC: HO.MDS 06:53 | PROVIDERS: Visit Provider Internal Medicine Rheumatology | DX: M33.90 Dermatopolymyositis, unspecified, organ involvement unspecified (principal) | CPT/HCPCS: 96365; 96366; J1569 ==

== ENCOUNTER 2022-11-01 09:04 | Outpatient (REF) | payer OTHER, SELFPAY ==
--- NOTE | ~2022-11-01 | XR_ITS ---
EXAMINATION: XR CHEST CLINICAL INFORMATION: Chest pain COMPARISON: None TECHNIQUE: 2 frontal, one lateral radiograph FINDINGS: Borderline prominence of the cardiac silhouette. Trachea is central. Slight elevation the right hemidiaphragm. Mild right basilar bronchovascular crowding. No focal consolidation, effusion, edema or pneumothorax.. Thoracic spine spondylosis. XR/XR chest 2V IMPRESSION: Borderline prominence of the cardiac silhouette.. No acute cardiopulmonary process.
[2022-11-01 13:18] LABS: Alanine Aminotransferase 58 U/L (0-40); Albumin Level 3.7 g/dL (3.5-5.0); Alkaline Phosphatase 59 U/L (39-117); Anion Gap 15 (12-20); Aspartate Amino Transferase 40 U/L (5-37); Blood Urea Nitrogen 14 mg/dL (9-16); Calcium 9.4 mg/dL (8.4-10.2); Carbon Dioxide 25 mmol/L (22-29); Chloride 104 mmol/L (96-108); Estimated Glomerular Filt Rate > 60; Glucose Random 77 mg/dL (60-115); Potassium 4.6 mmol/L (3.3-5.1); Sodium 139 mmol/L (135-145); Total Protein 8.7 g/dL (6.5-8.0)
[2022-11-01 13:20] LABS: TSH reflex Free T4 1.57 uIU/mL (0.32-4.0)
[2022-11-01 14:53] LABS: Erythrocyte Sedimentation Rate 58 MM/HR (0-15)
== END 2022-11-01 09:05 | disposition home or self-care (01) ==
LOC: HO.XRAY 09:04
PROVIDERS: Internal Medicine Rheumatology; PCP Physician Assistant; Visit Provider Nurse Practitioner
DX: R13.10 Dysphagia, unspecified (principal); M33.90 Dermatopolymyositis, unspecified, organ involvement unspecified; K59.04 Chronic idiopathic constipation; R14.0 Abdominal distension (gaseous); R00.2 Palpitations; R07.9 Chest pain, unspecified; M95.4 Acquired deformity of chest and rib; K21.9 Gastro-esophageal reflux disease without esophagitis; Z79.899 Other long term (current) drug therapy
CPT/HCPCS: 36415; 71046; 80053; 82550; 84443; 85652; 87338; 99212

== ENCOUNTER 2022-11-20 06:45 | Outpatient (REF) | payer OTHER, SELFPAY | END 2022-11-20 06:46 | disposition home or self-care (01) | LOC: HO.MDS 06:45 | PROVIDERS: Visit Provider Internal Medicine Rheumatology | DX: M33.90 Dermatopolymyositis, unspecified, organ involvement unspecified (principal) | CPT/HCPCS: 96365; 96366; J1569 ==

== ENCOUNTER 2022-11-21 06:58 | Outpatient (REF) | payer OTHER, SELFPAY | END 2022-11-21 06:59 | disposition home or self-care (01) | LOC: HO.MDS 06:58 | PROVIDERS: Visit Provider Internal Medicine Rheumatology | DX: M33.90 Dermatopolymyositis, unspecified, organ involvement unspecified (principal) | CPT/HCPCS: 96365; 96366; J1569 ==

== ENCOUNTER 2022-11-22 06:53 | Outpatient (REF) | payer OTHER, SELFPAY | END 2022-11-22 06:54 | disposition home or self-care (01) | LOC: HO.MDS 06:53 | PROVIDERS: Visit Provider Internal Medicine Rheumatology | DX: M33.90 Dermatopolymyositis, unspecified, organ involvement unspecified (principal) | CPT/HCPCS: 96365; 96366; J1569 ==

== ENCOUNTER 2022-11-23 06:55 | Outpatient (REF) | payer OTHER, SELFPAY | END 2022-11-23 06:56 | disposition home or self-care (01) | LOC: HO.MDS 06:55 | PROVIDERS: Visit Provider Internal Medicine Rheumatology | DX: M33.90 Dermatopolymyositis, unspecified, organ involvement unspecified (principal) | CPT/HCPCS: 96365; 96366; J1569 ==

== ENCOUNTER → 2022-12-06 07:44 | Outpatient (BNVA) | payer OTHER, SELFPAY | PROVIDERS: PCP Physician Assistant; Visit Provider Internal Medicine Rheumatology | DX: M33.90 Dermatopolymyositis, unspecified, organ involvement unspecified (principal); R74.01 Elevation of levels of liver transaminase levels; R13.10 Dysphagia, unspecified; F32.A Depression, unspecified; Z79.899 Other long term (current) drug therapy | CPT/HCPCS: 99212 ==

== ENCOUNTER 2022-12-12 10:22 | Outpatient (REF) | payer OTHER, SELFPAY ==
[2022-12-12 11:58] LABS: MANUAL DIFF FLAG NO
[2022-12-12 13:18] LABS: Basophils Absolute Auto 0.1 X10*3/uL (0.0-0.2); Basophils Percent Auto 0.5 % (0-2); Eosinophils Absolute Auto 0.1 X10*3/uL (0.0-0.4); Eosinophils Percent Auto 0.5 % (0-4); Hematocrit 45.5 % (42.0-52.0); Hemoglobin 14.3 g/dl (14.0-18.0); Imm Gran Abs Auto 0.14 X10*3/uL (0.00-0.03); Imm Gran Pct Auto 1.5 % (0.0-0.4); Lymphocytes Absolute Auto 1.3 X10*3/uL (1.2-4.9); Lymphocytes Percent Auto 13.8 % (20-40); Mean Corpuscular HGB Conc 31.4 g/dl (31.0-36.0); Mean Corpuscular Volume 82.9 fL (80.0-98.0); Monocytes Absolute Auto 0.6 X10*3/uL (0.1-1.2); Monocytes Percent Auto 6.7 % (2-11); Neutrophils Absolute Auto 7.2 x10*3/uL (2.0-8.3); Platelet Count 357 X10*3/uL (160-400); Red Blood Count 5.49 X10*6/uL (4.60-5.80); Red Cell Distribution Width 13.7 % (11.0-16.0); White Blood Count 9.3 X10*3/uL (4.8-10.8)
[2022-12-12 14:17] LABS: TSH reflex Free T4 1.37 uIU/mL (0.32-4.0)
[2022-12-12 14:52] LABS: Alanine Aminotransferase 35 U/L (0-40); Albumin Level 3.7 g/dL (3.5-5.0); Alkaline Phosphatase 79 U/L (39-117); Anion Gap 15 (12-20); Aspartate Amino Transferase 28 U/L (5-37); Bilirubin Total 0.8 mg/dL (0.0-1.0); Blood Urea Nitrogen 10 mg/dL (9-16); C Reactive Protein 0.66 mg/dL (< or = 0.50); Calcium 9.4 mg/dL (8.4-10.2); Carbon Dioxide 25 mmol/L (22-29); Chloride 103 mmol/L (96-108); Estimated Glomerular Filt Rate > 60; Gamma Glutamyl Transpeptidase 20 U/L (11-51); Glucose Random 86 mg/dL (60-115); Potassium 4.6 mmol/L (3.3-5.1); Sodium 138 mmol/L (135-145); Total Protein 7.5 g/dL (6.5-8.0)
[2022-12-12 15:01] LABS: Ferritin 292 ng/mL (20-250)
[2022-12-13 05:59] LABS: HBc Num1 0.59 S/CO (0.00-0.79); HBsAGNum1 0.38 S/CO (0.00-0.99); HIV AB/AG Nonreactive (Nonreactive); HIV Num 1 0.06 S/CO (0.00-0.99); Hepatitis A Antibody IgM 0.17 Index (0-0.79); Hepatitis B Core Antibody Nonreactive (Nonreactive); Hepatitis B Surface Antigen Negative (Negative); ~HepC Num1 0.19 S/CO (0.00-0.79); ~Hepatitis A Antibody IgM Nonreactive (Nonreactive); ~Hepatitis B Surface Antibody REACTIVE (Nonreactive); ~Hepatitis C Antibody Nonreactive (Nonreactive)
[2022-12-14 13:23] LABS: Alpha Fetoprotein 2.8 ng/mL (<6.1)
[2022-12-15 15:23] LABS: Mitochondrial Antibodies NEGATIVE (NEGATIVE)
[2022-12-17 18:04] LABS: Smooth Muscle Antibody <20 U (<20)
== END 2022-12-12 10:23 | disposition home or self-care (01) ==
LOC: HO.LAB 10:22
PROVIDERS: Internal Medicine Rheumatology; PCP Physician Assistant; Referring Provider Physician Assistant; Visit Provider Nurse Practitioner
DX: M33.90 Dermatopolymyositis, unspecified, organ involvement unspecified (principal); K59.04 Chronic idiopathic constipation; K21.9 Gastro-esophageal reflux disease without esophagitis; R74.01 Elevation of levels of liver transaminase levels; A04.8 Other specified bacterial intestinal infections; R13.10 Dysphagia, unspecified; R14.0 Abdominal distension (gaseous); Z79.899 Other long term (current) drug therapy
CPT/HCPCS: 36415; 80053; 82105; 82550; 82728; 82977; 84443; 85025; 86015; 86140; 86255; 86256; 86704; 86706; 86709; 86803; 87340; 87389; 99212

== ENCOUNTER 2022-12-13 11:11 | Outpatient (REF) | payer OTHER, SELFPAY | END 2022-12-13 11:12 | disposition home or self-care (01) | LOC: HO.LNP 11:11 | PROVIDERS: Visit Provider Nurse Practitioner | DX: Z13.89 Encounter for screening for other disorder (principal) ==

== ENCOUNTER 2022-12-18 06:54 | Outpatient (REF) | payer OTHER, SELFPAY | END 2022-12-18 06:55 | disposition home or self-care (01) | LOC: HO.MDS 06:54 | PROVIDERS: Visit Provider Internal Medicine Rheumatology | DX: M33.90 Dermatopolymyositis, unspecified, organ involvement unspecified (principal) | CPT/HCPCS: 96365; 96366; J1569 ==

== ENCOUNTER 2022-12-19 06:59 | Outpatient (REF) | payer OTHER, SELFPAY | END 2022-12-19 07:00 | disposition home or self-care (01) | LOC: HO.MDS 06:59 | PROVIDERS: Visit Provider Internal Medicine Rheumatology | DX: M33.90 Dermatopolymyositis, unspecified, organ involvement unspecified (principal) | CPT/HCPCS: 96365; 96366; J1569 ==

== ENCOUNTER 2022-12-20 06:46 | Outpatient (REF) | payer OTHER, SELFPAY | END 2022-12-20 06:47 | disposition home or self-care (01) | LOC: HO.MDS 06:46 | PROVIDERS: Visit Provider Internal Medicine Rheumatology | DX: M33.90 Dermatopolymyositis, unspecified, organ involvement unspecified (principal) | CPT/HCPCS: 96365; 96366; J1569 ==

== ENCOUNTER 2022-12-21 06:39 | Outpatient (REF) | payer OTHER, SELFPAY | END 2022-12-21 06:40 | disposition home or self-care (01) | LOC: HO.MDS 06:39 | PROVIDERS: Visit Provider Internal Medicine Rheumatology | DX: M33.90 Dermatopolymyositis, unspecified, organ involvement unspecified (principal) | CPT/HCPCS: 96365; 96366; J1569 ==

== ENCOUNTER → 2023-01-01 13:08 | Outpatient (BNVA) | payer MEDICAID, SELFPAY | PROVIDERS: PCP Physician Assistant; Referring Provider Nurse Practitioner; Visit Provider Internal Medicine | DX: R00.2 Palpitations (principal); R07.9 Chest pain, unspecified; R06.02 Shortness of breath | CPT/HCPCS: 93005; 99202 ==

== ENCOUNTER 2023-01-15 06:55 | Outpatient (REF) | payer MEDICAID, SELFPAY | END 2023-01-15 06:56 | disposition home or self-care (01) | LOC: HO.MDS 06:55 | PROVIDERS: Visit Provider Internal Medicine Rheumatology | DX: M33.90 Dermatopolymyositis, unspecified, organ involvement unspecified (principal) | CPT/HCPCS: 96365; 96366; J1569 ==

== ENCOUNTER 2023-01-16 06:46 | Outpatient (REF) | payer MEDICAID, SELFPAY | END 2023-01-16 06:47 | disposition home or self-care (01) | LOC: HO.MDS 06:46 | PROVIDERS: Visit Provider Internal Medicine Rheumatology | DX: M33.90 Dermatopolymyositis, unspecified, organ involvement unspecified (principal) | CPT/HCPCS: 93242; 93306; 93356; 96365; 96366; J1569 ==

== ENCOUNTER → 2023-01-16 12:39 | Outpatient (REF) | payer MEDICAID, SELFPAY ==
--- NOTE | 2023-01-16 12:43 | CA_ITS ---
Transthoracic Echocardiogram Patient (Last, First, Middle): Dewayne Randhawa R Gender: Male Date of : 1975 Age: 47 Procedure Date: 01/16/2023 Procedure Type: Transthoracic Echocardiogram Location: OP Height: 157.48 cm Weight: 92.99 kg BSA: 1.93 m2 Heart Rate: bpm BP: 128 / 82 mmHg Purification Director: TO Referring MD: Matt Carvalho MD Symptoms: R06.02 - Shortness of breath Study Quality: Fair ECG Rhythm: Sinus Conclusions: - The left ventricular systolic function is normal. The calculated ejection fraction is 60% by biplane method. - No obvious valvular pathology seen on this study. Findings Left Ventricle Normal left ventricular cavity size. The left ventricular systolic function is normal. The calculated ejection fraction is 60% by biplane method. There is no evidence of regional wall motion abnormalities. Diastolic function is normal for age. There is mild septal asymmetric hypertrophy. LV peak GLS 17.7%. Right Ventricle Normal right ventricular cavity size and systolic function. Atria Both atria are normal in size. Aortic Valve There is a normal trileaflet aortic valve. There is no aortic valve stenosis. There is no aortic valve regurgitation. Mitral Valve The mitral valve appears normal. There is no mitral valve regurgitation. There is no mitral valve stenosis. Pulmonic Valve The pulmonic valve is likely normal. Tricuspid Valve Normal tricuspid valve structure. There is trace tricuspid valve regurgitation. There is no evidence of pulmonary hypertension. Great Vessels The asc aorta is normal in size. Venous The inferior vena cava is normal in size and collapses greater than 50% with inspiration. Pericardium/Pleural There is no evidence of pericardial effusion. Prior Study Comparison No prior study available for comparison. Recommendations, Care & Conclusions No obvious valvular pathology seen on this study. Measurements 2D Linear Measurements IVSd: 1.09 0.6-0.9/0.6-1.0 cm LVIDd: 4.91 3.9-5.3/4.2-5.9 cm LVIDd Index: 2.54 2.4-3.2/2.2-3.1 cm/m2 LVIDs: 2.72 2.0-3.6 cm LVPWd: 0.94 0.7-1.1 cm LA Diam: 3.60 2.7-3.8/3.0-4.0 cm LAIDs Index: 1.87 1.5-2.3 cm/m2 LV Mass: 224.07 67-162/88-224 g LV Mass Index: 116.10 43-95/49-115 g/m2 LVOT Diam: 2.10 3.0+(-)1.3 cm 2D Systolic Function EF 4C: 55.40 >55% EF 2C: 64.60 >55% EF BiP: 60.10 >55% Mitral Valve MV Pk E: 0.97 MV PK A: 0.56 MV Decel Time: 228.00 E/A: 1.70 E'Lateral: 9.46 E'Medial: 7.18 E/E' Med: 13.50 E/E' Lat: 10.20 PHT: 67.00 MVA PHT: 3.28 Decel [place]: 4.25 Aortic Valve AoV Pk Aakash: 1.36 AoV Mn Aakash: 0.91 AoV VTI: 0.28 AoV Pk Grad: 7.00 Aov Mn Grad: 4.00 FROYLAN Cont.VTI: 2.79 LVOT LVOT Pk Aakash: 1.05 LVOT Mn Aakash: 0.69 LVOT VTI: 0.23 LVOT Pk Grad: 4.00 LVOT Mn Grad: 2.00 LVOT Diam: 2.10 LVOT Area: 3.46 Diastolic Function MV Pk E: 0.97 MV Pk A: 0.56 E/A: 1.70 E'Medial: 7.18 E/E' Med: 13.50 E' Laterial: 9.46 E/E' Lat: 10.20 Right Ventricle TAPSE (mm): 27.80 TVS' Aakash: 11.70 Tricuspid Valve TR Pk Aakash: 1.59 TR Pk Grad: 10.00 RA Press: 3.00 RVSP: 13.00 Great Vessels Aorta Sinus of Valsalva: 3.48 2.0-3.5 cm Ao Asc: 3.70 2.1-3.4 cm Updated in Other Vendor System with Status of Final Matt Carvalho MD electronically signed on 01/17/2023 9:30:42 AM with status of Final
--- NOTE | 2023-01-16 12:43 | HM_ITS ---
* Total monitoring time about 2 days. * Underlying rhythm is sinus. Average ventricular rate 69/Min. Range 50 to 111/min. * Rare supraventricular and ventricular ectopy. * No sustained arrhythmias. * No significant pauses or AV blocks. * No patient markers or events in diary. MTDD
== END ==
LOC: HO.CARD 12:39
PROVIDERS: PCP Physician Assistant; Visit Provider Internal Medicine
DX: R00.2 Palpitations (principal); R06.02 Shortness of breath
CPT/HCPCS: 93242; 93306; 93356

== ENCOUNTER 2023-01-17 06:52 | Outpatient (REF) | payer MEDICAID, SELFPAY | END 2023-01-17 06:53 | disposition home or self-care (01) | LOC: HO.MDS 06:52 | PROVIDERS: Visit Provider Internal Medicine Rheumatology | DX: M33.90 Dermatopolymyositis, unspecified, organ involvement unspecified (principal) | CPT/HCPCS: 96365; 96366; J1569 ==

== ENCOUNTER 2023-01-18 06:48 | Outpatient (REF) | payer MEDICAID, SELFPAY | END 2023-01-18 06:49 | disposition home or self-care (01) | LOC: HO.MDS 06:48 | PROVIDERS: Visit Provider Internal Medicine Rheumatology | DX: M33.90 Dermatopolymyositis, unspecified, organ involvement unspecified (principal) | CPT/HCPCS: 96365; 96366; J1569 ==

== ENCOUNTER 2023-02-12 06:52 | Outpatient (REF) | payer MEDICAID, SELFPAY | END 2023-02-12 06:53 | disposition home or self-care (01) | LOC: HO.MDS 06:52 | PROVIDERS: Visit Provider Internal Medicine Rheumatology | DX: M33.90 Dermatopolymyositis, unspecified, organ involvement unspecified (principal) | CPT/HCPCS: 96365; 96366; J1569 ==

== ENCOUNTER 2023-02-13 06:50 | Outpatient (REF) | payer MEDICAID, SELFPAY | END 2023-02-13 06:51 | disposition home or self-care (01) | LOC: HO.MDS 06:50 | PROVIDERS: Visit Provider Internal Medicine Rheumatology | DX: M33.90 Dermatopolymyositis, unspecified, organ involvement unspecified (principal) | CPT/HCPCS: 96365; 96366; J1569 ==

== ENCOUNTER 2023-02-14 06:48 | Outpatient (REF) | payer MEDICAID, SELFPAY | END 2023-02-14 06:49 | disposition home or self-care (01) | LOC: HO.MDS 06:48 | PROVIDERS: Visit Provider Internal Medicine Rheumatology | DX: M33.90 Dermatopolymyositis, unspecified, organ involvement unspecified (principal) | CPT/HCPCS: 96365; 96366; J1569 ==

== ENCOUNTER 2023-02-15 07:03 | Outpatient (REF) | payer MEDICAID, SELFPAY | END 2023-02-15 07:04 | disposition home or self-care (01) | LOC: HO.MDS 07:03 | PROVIDERS: Visit Provider Internal Medicine Rheumatology | DX: M33.90 Dermatopolymyositis, unspecified, organ involvement unspecified (principal) | CPT/HCPCS: 96365; 96366; J1569 ==

== ENCOUNTER → 2023-03-05 10:42 | Outpatient (BNVA) | payer MEDICAID, SELFPAY | PROVIDERS: PCP Physician Assistant; Visit Provider Internal Medicine Rheumatology | DX: M33.90 Dermatopolymyositis, unspecified, organ involvement unspecified (principal); L73.9 Follicular disorder, unspecified; Z79.899 Other long term (current) drug therapy | CPT/HCPCS: 99212 ==

== ENCOUNTER 2023-03-05 11:31 | Outpatient (REF) | payer MEDICAID, SELFPAY ==
[2023-03-05 13:17] LABS: MANUAL DIFF FLAG NO
[2023-03-05 13:22] LABS: Basophils Percent Auto 0.3 % (0-2); Eosinophils Absolute Auto 0.1 X10*3/uL (0.0-0.4); Eosinophils Percent Auto 0.6 % (0-4); Hematocrit 47.5 % (42.0-52.0); Hemoglobin 14.7 g/dl (14.0-18.0); Imm Gran Abs Auto 0.08 X10*3/uL (0.00-0.03); Imm Gran Pct Auto 0.8 % (0.0-0.4); Lymphocytes Absolute Auto 1.4 X10*3/uL (1.2-4.9); Lymphocytes Percent Auto 14.5 % (20-40); Mean Corpuscular HGB Conc 30.9 g/dl (31.0-36.0); Mean Corpuscular Volume 80.9 fL (80.0-98.0); Mean Platelet Volume 10.2 fL (9.4-12.4); Monocytes Absolute Auto 0.8 X10*3/uL (0.1-1.2); Monocytes Percent Auto 7.7 % (2-11); Neutrophils Absolute Auto 7.5 x10*3/uL (2.0-8.3); Neutrophils Percent Auto 76.1 % (45-73); Platelet Count 340 X10*3/uL (160-400); Red Blood Count 5.87 X10*6/uL (4.60-5.80); White Blood Count 9.8 X10*3/uL (4.8-10.8)
[2023-03-05 13:41] LABS: Alanine Aminotransferase 32 U/L (0-40); Albumin Level 3.9 g/dL (3.5-5.0); Alkaline Phosphatase 79 U/L (39-117); Anion Gap 13 (12-20); Aspartate Amino Transferase 28 U/L (5-37); Bilirubin Total 0.9 mg/dL (0.0-1.0); Blood Urea Nitrogen 13 mg/dL (9-16); C Reactive Protein 0.43 mg/dL (< or = 0.50); Calcium 9.8 mg/dL (8.4-10.2); Carbon Dioxide 28 mmol/L (22-29); Chloride 104 mmol/L (96-108); Estimated Glomerular Filt Rate > 60; Glucose Random 85 mg/dL (60-115); Potassium 4.8 mmol/L (3.3-5.1); Sodium 140 mmol/L (135-145); Total Protein 8.1 g/dL (6.5-8.0)
== END 2023-03-05 11:32 | disposition home or self-care (01) ==
LOC: HO.10HDL 11:31
PROVIDERS: Visit Provider Internal Medicine Rheumatology
DX: M33.90 Dermatopolymyositis, unspecified, organ involvement unspecified (principal); L73.9 Follicular disorder, unspecified; Z79.899 Other long term (current) drug therapy
CPT/HCPCS: 36415; 80053; 82550; 85025; 86140

== ENCOUNTER 2023-03-19 06:51 | Outpatient (REF) | payer MEDICAID, SELFPAY | END 2023-03-19 06:52 | disposition home or self-care (01) | LOC: HO.MDS 06:51 | PROVIDERS: PCP Physician Assistant; Visit Provider Internal Medicine Rheumatology | DX: M33.90 Dermatopolymyositis, unspecified, organ involvement unspecified (principal) | CPT/HCPCS: 96365; 96366; J1569 ==

== ENCOUNTER 2023-03-20 06:44 | Outpatient (REF) | payer MEDICAID, SELFPAY | END 2023-03-20 06:45 | disposition home or self-care (01) | LOC: HO.MDS 06:44 | PROVIDERS: PCP Physician Assistant; Visit Provider Internal Medicine Rheumatology | DX: M33.90 Dermatopolymyositis, unspecified, organ involvement unspecified (principal) | CPT/HCPCS: 96365; 96366; J1569 ==

== ENCOUNTER 2023-03-21 06:48 | Outpatient (REF) | payer MEDICAID, SELFPAY | END 2023-03-21 06:49 | disposition home or self-care (01) | LOC: HO.MDS 06:48 | PROVIDERS: Visit Provider Internal Medicine Rheumatology | DX: M33.90 Dermatopolymyositis, unspecified, organ involvement unspecified (principal) | CPT/HCPCS: 96365; 96366; J1569 ==

== ENCOUNTER 2023-03-22 07:46 | Outpatient (REF) | payer MEDICAID, SELFPAY | END 2023-03-22 07:47 | disposition home or self-care (01) | LOC: HO.MDS 07:46 | PROVIDERS: Visit Provider Internal Medicine Rheumatology | DX: M33.90 Dermatopolymyositis, unspecified, organ involvement unspecified (principal) | CPT/HCPCS: 96365; 96366; J1569 ==

== ENCOUNTER 2023-04-16 06:48 | Outpatient (REF) | payer MEDICAID, SELFPAY | END 2023-04-16 06:49 | disposition home or self-care (01) | LOC: HO.MDS 06:48 | PROVIDERS: Visit Provider Internal Medicine Rheumatology | DX: M33.90 Dermatopolymyositis, unspecified, organ involvement unspecified (principal) | CPT/HCPCS: 96365; 96366; J1569 ==

== ENCOUNTER 2023-04-17 06:53 | Outpatient (REF) | payer MEDICAID, SELFPAY | END 2023-04-17 06:54 | disposition home or self-care (01) | LOC: HO.MDS 06:53 | PROVIDERS: Visit Provider Internal Medicine Rheumatology | DX: M33.90 Dermatopolymyositis, unspecified, organ involvement unspecified (principal) | CPT/HCPCS: 96365; 96366; J1569 ==

== ENCOUNTER 2023-04-18 06:54 | Outpatient (REF) | payer MEDICAID, SELFPAY | END 2023-04-18 06:55 | disposition home or self-care (01) | LOC: HO.MDS 06:54 | PROVIDERS: Visit Provider Internal Medicine Rheumatology | DX: M33.90 Dermatopolymyositis, unspecified, organ involvement unspecified (principal) | CPT/HCPCS: 96365; 96366; J1569 ==

== ENCOUNTER 2023-04-19 07:03 | Outpatient (REF) | payer MEDICAID, SELFPAY | END 2023-04-19 07:04 | disposition home or self-care (01) | LOC: HO.MDS 07:03 | PROVIDERS: Visit Provider Internal Medicine Rheumatology | DX: M33.90 Dermatopolymyositis, unspecified, organ involvement unspecified (principal) | CPT/HCPCS: 96365; 96366; J1569 ==

== ENCOUNTER 2023-04-24 13:41 | Outpatient (AMB) | payer MEDICAID, SELFPAY ==
[2023-04-24 13:50] VITALS: BP 120/72; PULSE 80; O2SAT 99; BMI 38.2
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
== END 2023-04-24 14:13 | disposition home or self-care (01) ==
PROVIDERS: PCP Physician Assistant; Referring Provider Physician Assistant; Visit Provider Internal Medicine
DX: R00.2 Palpitations (principal); R07.9 Chest pain, unspecified; R06.02 Shortness of breath
CPT/HCPCS: 99213

== ENCOUNTER → 2023-04-24 13:41 | Outpatient (BNVA) | payer MEDICAID, SELFPAY | PROVIDERS: PCP Physician Assistant; Referring Provider Physician Assistant; Visit Provider Internal Medicine | DX: R00.2 Palpitations (principal); R07.9 Chest pain, unspecified; R06.02 Shortness of breath | CPT/HCPCS: 99212 ==

== ENCOUNTER 2023-05-14 06:50 | Outpatient (REF) | payer MEDICAID, SELFPAY | END 2023-05-14 06:51 | disposition home or self-care (01) | LOC: HO.MDS 06:50 | PROVIDERS: Visit Provider Internal Medicine Rheumatology | DX: M33.90 Dermatopolymyositis, unspecified, organ involvement unspecified (principal) | CPT/HCPCS: 96365; 96366; J1569 ==

== ENCOUNTER 2023-05-15 06:48 | Outpatient (REF) | payer MEDICAID, SELFPAY | END 2023-05-15 06:49 | disposition home or self-care (01) | LOC: HO.MDS 06:48 | PROVIDERS: Visit Provider Internal Medicine Rheumatology | DX: M33.90 Dermatopolymyositis, unspecified, organ involvement unspecified (principal) | CPT/HCPCS: 96365; 96366; J1569 ==

== ENCOUNTER 2023-05-16 06:50 | Outpatient (REF) | payer MEDICAID, SELFPAY | END 2023-05-16 06:51 | disposition home or self-care (01) | LOC: HO.MDS 06:50 | PROVIDERS: Visit Provider Internal Medicine Rheumatology | DX: M33.90 Dermatopolymyositis, unspecified, organ involvement unspecified (principal) | CPT/HCPCS: 96365; 96366; J1569 ==

== ENCOUNTER 2023-05-17 06:55 | Outpatient (REF) | payer MEDICAID, SELFPAY | END 2023-05-17 06:56 | disposition home or self-care (01) | LOC: HO.MDS 06:55 | PROVIDERS: Visit Provider Internal Medicine Rheumatology | DX: M33.90 Dermatopolymyositis, unspecified, organ involvement unspecified (principal) | CPT/HCPCS: 96365; 96366; J1569 ==

== ENCOUNTER 2023-05-21 11:10 | Outpatient (AMB) | payer MEDICAID, SELFPAY ==
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
[2023-05-21 11:41] VITALS: BP 108/82; PULSE 78; TEMP 36.7; O2SAT 98; BMI 38.3
== END 2023-05-21 12:29 | disposition home or self-care (01) ==
PROVIDERS: PCP Physician Assistant; Visit Provider Internal Medicine Rheumatology
DX: M33.90 Dermatopolymyositis, unspecified, organ involvement unspecified (principal); Z79.899 Other long term (current) drug therapy; H60.93 Unspecified otitis externa, bilateral; R21 Rash and other nonspecific skin eruption
CPT/HCPCS: 99214

== ENCOUNTER → 2023-05-21 11:10 | Outpatient (BNVA) | payer MEDICAID, SELFPAY | PROVIDERS: PCP Physician Assistant; Visit Provider Internal Medicine Rheumatology | DX: M33.90 Dermatopolymyositis, unspecified, organ involvement unspecified (principal); R21 Rash and other nonspecific skin eruption; H60.90 Unspecified otitis externa, unspecified ear; Z79.899 Other long term (current) drug therapy | CPT/HCPCS: 99212 ==

== ENCOUNTER 2023-05-21 12:34 | Outpatient (REF) | payer MEDICAID, SELFPAY ==
[2023-05-21 13:11] LABS: MANUAL DIFF FLAG NO
[2023-05-21 13:19] LABS: Basophils Percent Auto 0.4 % (0-2); Eosinophils Percent Auto 0.4 % (0-4); Hematocrit 47.3 % (42.0-52.0); Hemoglobin 14.8 g/dl (14.0-18.0); Imm Gran Abs Auto 0.03 X10*3/uL (0.00-0.03); Imm Gran Pct Auto 0.4 % (0.0-0.4); Lymphocytes Absolute Auto 1.1 X10*3/uL (1.2-4.9); Lymphocytes Percent Auto 14.5 % (20-40); Mean Corpuscular HGB Conc 31.3 g/dl (31.0-36.0); Mean Corpuscular Hemoglobin 25.4 pg (27.0-33.0); Mean Corpuscular Volume 81.3 fL (80.0-98.0); Monocytes Absolute Auto 0.8 X10*3/uL (0.1-1.2); Monocytes Percent Auto 10.5 % (2-11); Neutrophils Absolute Auto 5.8 x10*3/uL (2.0-8.3); Neutrophils Percent Auto 73.8 % (45-73); Platelet Count 313 X10*3/uL (160-400); Red Blood Count 5.82 X10*6/uL (4.60-5.80); Red Cell Distribution Width 14.7 % (11.0-16.0); White Blood Count 7.8 X10*3/uL (4.8-10.8)
[2023-05-21 13:32] LABS: C Reactive Protein 1.39 mg/dL (< or = 0.50)
== END 2023-05-21 12:35 | disposition home or self-care (01) ==
LOC: HO.10HDL 12:34
PROVIDERS: Visit Provider Internal Medicine Rheumatology
DX: M33.90 Dermatopolymyositis, unspecified, organ involvement unspecified (principal); R21 Rash and other nonspecific skin eruption; H60.90 Unspecified otitis externa, unspecified ear; E11.9 Type 2 diabetes mellitus without complications; Z79.899 Other long term (current) drug therapy
CPT/HCPCS: 36415; 82550; 85025; 86140

== ENCOUNTER 2023-05-23 10:30 | Outpatient (REF) | payer MEDICAID, SELFPAY ==
[2023-05-23 13:05] LABS: Gamma Glutamyl Transpeptidase 16 U/L (11-51)
[2023-05-23 13:18] LABS: Ferritin 297 ng/mL (20-250)
[2023-05-24 12:58] LABS: Alpha Fetoprotein 2.4 ng/mL (<6.1)
== END 2023-05-23 10:31 | disposition home or self-care (01) ==
LOC: HO.LAB 10:30
PROVIDERS: PCP Physician Assistant; Visit Provider Nurse Practitioner
DX: R74.01 Elevation of levels of liver transaminase levels (principal); K59.04 Chronic idiopathic constipation; K21.9 Gastro-esophageal reflux disease without esophagitis; R14.0 Abdominal distension (gaseous)
CPT/HCPCS: 36415; 82105; 82728; 82977; 87338; 99212

== ENCOUNTER 2023-05-23 10:30 | Outpatient (AMB) | payer MEDICAID, SELFPAY ==
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
[2023-05-23 10:56] VITALS: BP 115/66; PULSE 74; BMI 38.4
== END 2023-05-23 11:30 | disposition home or self-care (01) ==
PROVIDERS: PCP Physician Assistant; Visit Provider Nurse Practitioner
DX: K21.9 Gastro-esophageal reflux disease without esophagitis (principal); K59.04 Chronic idiopathic constipation; R14.0 Abdominal distension (gaseous); R74.01 Elevation of levels of liver transaminase levels
CPT/HCPCS: 99214

== ENCOUNTER 2023-06-18 06:51 | Outpatient (REF) | payer MEDICAID, SELFPAY | END 2023-06-18 06:52 | disposition home or self-care (01) | LOC: HO.MDS 06:51 | PROVIDERS: Visit Provider Internal Medicine Rheumatology | DX: M33.90 Dermatopolymyositis, unspecified, organ involvement unspecified (principal) | CPT/HCPCS: 96365; 96366; J1569 ==

== ENCOUNTER 2023-06-19 06:53 | Outpatient (REF) | payer MEDICAID, SELFPAY | END 2023-06-19 06:54 | disposition home or self-care (01) | LOC: HO.MDS 06:53 | PROVIDERS: Visit Provider Internal Medicine Rheumatology | DX: M33.90 Dermatopolymyositis, unspecified, organ involvement unspecified (principal) | CPT/HCPCS: 96365; 96366; J1569 ==

== ENCOUNTER 2023-06-20 06:57 | Outpatient (REF) | payer MEDICAID, SELFPAY | END 2023-06-20 06:58 | disposition home or self-care (01) | LOC: HO.MDS 06:57 | PROVIDERS: Visit Provider Internal Medicine Rheumatology | DX: M33.90 Dermatopolymyositis, unspecified, organ involvement unspecified (principal) | CPT/HCPCS: 96365; 96366; J1569 ==

== ENCOUNTER 2023-06-21 06:57 | Outpatient (REF) | payer MEDICAID, SELFPAY | END 2023-06-21 06:58 | disposition home or self-care (01) | LOC: HO.MDS 06:57 | PROVIDERS: Visit Provider Internal Medicine Rheumatology | DX: M33.90 Dermatopolymyositis, unspecified, organ involvement unspecified (principal) | CPT/HCPCS: 96365; 96366; J1569 ==

== ENCOUNTER 2023-07-16 09:29 | Outpatient (REF) | payer MEDICAID, SELFPAY | END 2023-07-16 09:30 | disposition home or self-care (01) | LOC: HO.MDS 09:29 | PROVIDERS: Visit Provider Internal Medicine Rheumatology | DX: M33.90 Dermatopolymyositis, unspecified, organ involvement unspecified (principal) | CPT/HCPCS: 96365; 96366; J1569 ==

== ENCOUNTER 2023-07-23 13:35 | Outpatient (AMB) | payer MEDICAID, SELFPAY ==
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
[2023-07-23 13:37] VITALS: BP 148/90; PULSE 81; TEMP 36.9; O2SAT 98; BMI 39.0
== END 2023-07-23 14:15 | disposition home or self-care (01) ==
PROVIDERS: PCP Physician Assistant; Visit Provider Internal Medicine Rheumatology
DX: Z79.899 Other long term (current) drug therapy (principal); M33.90 Dermatopolymyositis, unspecified, organ involvement unspecified
CPT/HCPCS: 99214

== ENCOUNTER → 2023-07-23 13:35 | Outpatient (BNVA) | payer MEDICAID, SELFPAY | PROVIDERS: PCP Physician Assistant; Visit Provider Internal Medicine Rheumatology | DX: M33.90 Dermatopolymyositis, unspecified, organ involvement unspecified (principal); Z79.899 Other long term (current) drug therapy | CPT/HCPCS: 99212 ==

== ENCOUNTER 2023-07-25 06:48 | Outpatient (REF) | payer MEDICAID, SELFPAY | END 2023-07-25 06:49 | disposition home or self-care (01) | LOC: HO.MDS 06:48 | PROVIDERS: Visit Provider Internal Medicine Rheumatology | DX: M33.90 Dermatopolymyositis, unspecified, organ involvement unspecified (principal) | CPT/HCPCS: 96365; 96366; J1569 ==

== ENCOUNTER 2023-07-26 06:55 | Outpatient (REF) | payer MEDICAID, SELFPAY | END 2023-07-26 06:56 | disposition home or self-care (01) | LOC: HO.MDS 06:55 | PROVIDERS: Visit Provider Internal Medicine Rheumatology | DX: M33.90 Dermatopolymyositis, unspecified, organ involvement unspecified (principal) | CPT/HCPCS: 96365; 96366; J1569 ==

== ENCOUNTER 2023-07-27 06:48 | Outpatient (REF) | payer MEDICAID, SELFPAY | END 2023-07-27 06:49 | disposition home or self-care (01) | LOC: HO.MDS 06:48 | PROVIDERS: Visit Provider Internal Medicine Rheumatology | DX: M33.90 Dermatopolymyositis, unspecified, organ involvement unspecified (principal) | CPT/HCPCS: 96365; 96366; J1569 ==

== ENCOUNTER 2023-08-07 12:05 | Outpatient (REF) | payer MEDICAID, SELFPAY ==
[2023-08-07 13:09] LABS: MANUAL DIFF FLAG NO
[2023-08-07 13:18] LABS: Basophils Percent Auto 0.5 % (0-2); Eosinophils Percent Auto 0.5 % (0-4); Hemoglobin 14.6 g/dl (14.0-18.0); Imm Gran Abs Auto 0.05 X10*3/uL (0.00-0.03); Imm Gran Pct Auto 0.6 % (0.0-0.4); Lymphocytes Absolute Auto 1.7 X10*3/uL (1.2-4.9); Lymphocytes Percent Auto 20.5 % (20-40); Mean Corpuscular HGB Conc 31.1 g/dl (31.0-36.0); Mean Corpuscular Hemoglobin 25.3 pg (27.0-33.0); Mean Corpuscular Volume 81.3 fL (80.0-98.0); Mean Platelet Volume 10.3 fL (9.4-12.4); Monocytes Absolute Auto 0.8 X10*3/uL (0.1-1.2); Monocytes Percent Auto 10.3 % (2-11); Neutrophils Absolute Auto 5.5 x10*3/uL (2.0-8.3); Neutrophils Percent Auto 67.6 % (45-73); Platelet Count 328 X10*3/uL (160-400); Red Blood Count 5.78 X10*6/uL (4.60-5.80); Red Cell Distribution Width 15.4 % (11.0-16.0); White Blood Count 8.1 X10*3/uL (4.8-10.8)
[2023-08-07 14:35] LABS: C Reactive Protein 0.51 mg/dL (< or = 0.50)
== END 2023-08-07 12:06 | disposition home or self-care (01) ==
LOC: HO.10HDL 12:05
PROVIDERS: Visit Provider Internal Medicine Rheumatology
DX: M33.90 Dermatopolymyositis, unspecified, organ involvement unspecified (principal); Z79.899 Other long term (current) drug therapy
CPT/HCPCS: 36415; 82550; 85025; 86140

== ENCOUNTER 2023-08-21 09:39 | Outpatient (REF) | payer MEDICAID, SELFPAY | END 2023-08-21 09:40 | disposition home or self-care (01) | LOC: HO.MDS 09:39 | PROVIDERS: Visit Provider Internal Medicine Rheumatology | DX: M33.90 Dermatopolymyositis, unspecified, organ involvement unspecified (principal) | CPT/HCPCS: 96365; 96366; J1569 ==

== ENCOUNTER 2023-08-22 09:19 | Outpatient (REF) | payer MEDICAID, SELFPAY | END 2023-08-22 09:20 | disposition home or self-care (01) | LOC: HO.MDS 09:19 | PROVIDERS: Visit Provider Internal Medicine Rheumatology | DX: M33.90 Dermatopolymyositis, unspecified, organ involvement unspecified (principal) | CPT/HCPCS: 96365; 96366; J1569 ==

== ENCOUNTER 2023-08-23 09:22 | Outpatient (REF) | payer MEDICAID, SELFPAY | END 2023-08-23 09:23 | disposition home or self-care (01) | LOC: HO.MDS 09:22 | PROVIDERS: Visit Provider Internal Medicine Rheumatology | DX: M33.90 Dermatopolymyositis, unspecified, organ involvement unspecified (principal) | CPT/HCPCS: 96365; 96366; J1569 ==

== ENCOUNTER 2023-10-01 09:22 | Outpatient (REF) | payer MEDICAID, SELFPAY | END 2023-10-01 09:23 | disposition home or self-care (01) | LOC: HO.MDS 09:22 | PROVIDERS: Visit Provider Internal Medicine Rheumatology | DX: M33.90 Dermatopolymyositis, unspecified, organ involvement unspecified (principal) | CPT/HCPCS: 96365; 96366; J1569 ==

== ENCOUNTER 2023-10-02 09:47 | Outpatient (REF) | payer MEDICAID, SELFPAY | END 2023-10-02 09:48 | disposition home or self-care (01) | LOC: HO.MDS 09:47 | PROVIDERS: Visit Provider Internal Medicine Rheumatology | DX: M33.90 Dermatopolymyositis, unspecified, organ involvement unspecified (principal) | CPT/HCPCS: 96365; 96366; J1569 ==

== ENCOUNTER 2023-10-03 09:23 | Outpatient (REF) | payer MEDICAID, SELFPAY | END 2023-10-03 09:24 | disposition home or self-care (01) | LOC: HO.MDS 09:23 | PROVIDERS: Visit Provider Internal Medicine Rheumatology | DX: M33.90 Dermatopolymyositis, unspecified, organ involvement unspecified (principal) | CPT/HCPCS: 96365; 96366; J1569 ==

== ENCOUNTER 2023-10-17 15:56 | Outpatient (AMB) | payer MEDICAID, SELFPAY ==
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
[2023-10-17 16:04] VITALS: BP 130/80; PULSE 94; O2SAT 98; BMI 38.6
== END 2023-10-17 16:25 | disposition home or self-care (01) ==
PROVIDERS: PCP Physician Assistant; Visit Provider Student in an Organized Health Care Education/Training Program
DX: M33.90 Dermatopolymyositis, unspecified, organ involvement unspecified (principal); Z79.899 Other long term (current) drug therapy
CPT/HCPCS: 99215

== ENCOUNTER → 2023-10-17 15:56 | Outpatient (BNVA) | payer MEDICAID, SELFPAY | PROVIDERS: PCP Physician Assistant; Visit Provider Student in an Organized Health Care Education/Training Program | DX: M33.90 Dermatopolymyositis, unspecified, organ involvement unspecified (principal); Z79.899 Other long term (current) drug therapy | CPT/HCPCS: 99212 ==

== ENCOUNTER 2023-11-13 09:21 | Outpatient (REF) | payer MEDICAID, SELFPAY ==
[2023-11-13 11:04] LABS: MANUAL DIFF FLAG NO
[2023-11-13 11:05] LABS: Basophils Percent Auto 0.4 % (0-2); Eosinophils Percent Auto 0.5 % (0-4); Hemoglobin 15.1 g/dl (14.0-18.0); Imm Gran Abs Auto 0.07 X10*3/uL (0.00-0.03); Imm Gran Pct Auto 0.9 % (0.0-0.4); Lymphocytes Absolute Auto 1.2 X10*3/uL (1.2-4.9); Lymphocytes Percent Auto 16.2 % (20-40); Mean Corpuscular HGB Conc 32.1 g/dl (31.0-36.0); Mean Corpuscular Volume 80.9 fL (80.0-98.0); Mean Platelet Volume 9.4 fL (9.4-12.4); Monocytes Absolute Auto 0.5 X10*3/uL (0.1-1.2); Monocytes Percent Auto 7.3 % (2-11); Neutrophils Absolute Auto 5.5 x10*3/uL (2.0-8.3); Neutrophils Percent Auto 74.7 % (45-73); Platelet Count 286 X10*3/uL (160-400); Red Blood Count 5.81 X10*6/uL (4.60-5.80); White Blood Count 7.4 X10*3/uL (4.8-10.8)
[2023-11-13 11:19] LABS: Alanine Aminotransferase 26 U/L (0-40); Albumin Level 3.9 g/dL (3.5-5.0); Alkaline Phosphatase 74 U/L (39-117); Anion Gap 12 (12-20); Aspartate Amino Transferase 21 U/L (5-37); Bilirubin Total 1.1 mg/dL (0.0-1.0); Blood Urea Nitrogen 14 mg/dL (9-16); C Reactive Protein 0.52 mg/dL (< or = 0.50); Calcium 9.3 mg/dL (8.4-10.2); Carbon Dioxide 25 mmol/L (22-29); Chloride 106 mmol/L (96-108); Estimated Glomerular Filt Rate > 60; Glucose Random 104 mg/dL (60-115); Potassium 3.7 mmol/L (3.3-5.1); Sodium 139 mmol/L (135-145); Total Protein 7.8 g/dL (6.5-8.0)
[2023-11-13 11:49] LABS: Erythrocyte Sedimentation Rate 12 MM/HR (0-15)
[2023-11-23 20:24] LABS: Centromere Protein A Ab <11 SI (<11); Centromere Protein B Ab <11 SI (<11); Fibrillarin Ab <11 SI (<11); PM SCL 100 Ab <11 SI (<11); PM SCL 75 Ab <11 SI (<11); RNA Polymerase III RP11 Ab 14 SI (<11); RNA Polymerase III RP155 Ab <11 SI (<11); SCL-70 Extractable Nuclear Ab <11 SI (<11); Th-To Ab <11 SI (<11); U1 SNRNP RNP 70KD <11 SI (<11); U1 SNRNP RNP A <11 SI (<11); U1 SNRNP RNP C <11 SI (<11)
[2023-11-24 17:08] LABS: Cytosolic 5'nuc 1A Ab IgG 11 Units; Ej Ab <11 SI (<11); HMGCR Ab IgG <2 CU (<20); Jo-1 Ab <11 SI (<11); MDA5 Ab <11 SI (<11); Mi-2 alpha Ab 98 SI (<11); Mi-2 beta Ab 19 SI (<11); NXP-2 (MJ) Ab <11 SI (<11); Oj Ab <11 SI (<11); Pl-12 Ab <11 SI (<11); Pl-7 Ab <11 SI (<11); SRP Ab <11 SI (<11); TIF1 gamma Ab <11 SI (<11)
== END 2023-11-13 09:22 | disposition home or self-care (01) ==
LOC: HO.MDS 09:21
PROVIDERS: Student in an Organized Health Care Education/Training Program; Visit Provider Internal Medicine Rheumatology
DX: M33.90 Dermatopolymyositis, unspecified, organ involvement unspecified (principal); M34.9 Systemic sclerosis, unspecified; Z79.899 Other long term (current) drug therapy
CPT/HCPCS: 36415; 80053; 82550; 83516; 83520; 84182; 85025; 85652; 86140; 86235; 96365; 96366; J1569

== ENCOUNTER 2023-11-14 09:14 | Outpatient (REF) | payer MEDICAID, SELFPAY | END 2023-11-14 09:15 | disposition home or self-care (01) | LOC: HO.MDS 09:14 | PROVIDERS: Visit Provider Internal Medicine Rheumatology | DX: M33.90 Dermatopolymyositis, unspecified, organ involvement unspecified (principal) | CPT/HCPCS: 96365; 96366; J1569 ==

== ENCOUNTER 2023-11-15 09:38 | Outpatient (REF) | payer MEDICAID, SELFPAY | END 2023-11-15 09:39 | disposition home or self-care (01) | LOC: HO.MDS 09:38 | PROVIDERS: Visit Provider Internal Medicine Rheumatology | DX: M33.90 Dermatopolymyositis, unspecified, organ involvement unspecified (principal) | CPT/HCPCS: 96365; 96366; J1569 ==

== ENCOUNTER 2023-12-18 09:26 | Outpatient (REF) | payer MEDICAID, SELFPAY ==
[2023-12-18] VITALS (9 sets, daily range): BP systolic 119–137; BP diastolic 80–97; PULSE 64–80; RESP 16–18; TEMP 36.7; O2SAT 98; BMI 37.5
[2023-12-18] MEDS: Immun Glob G(IgG)/Gly/IGA Ov50 300 ML IV (10:37)
== END 2023-12-18 09:27 | disposition home or self-care (01) ==
LOC: HO.MDS 09:26
PROVIDERS: Visit Provider Internal Medicine Rheumatology
DX: M33.90 Dermatopolymyositis, unspecified, organ involvement unspecified (principal)
CPT/HCPCS: 96365; 96366; J1569

== ENCOUNTER 2023-12-19 09:05 | Outpatient (REF) | payer MEDICAID, SELFPAY ==
[2023-12-19] VITALS (9 sets, daily range): BP systolic 121–132; BP diastolic 75–87; PULSE 64–72; RESP 20; TEMP 36.6; O2SAT 99
[2023-12-19] MEDS: Immun Glob G(IgG)/Gly/IGA Ov50 300 ML IV (09:53)
== END 2023-12-19 09:06 | disposition home or self-care (01) ==
LOC: HO.MDS 09:05
PROVIDERS: Visit Provider Internal Medicine Rheumatology
DX: M33.90 Dermatopolymyositis, unspecified, organ involvement unspecified (principal)
CPT/HCPCS: 96365; 96366; J1569

== ENCOUNTER 2023-12-20 09:18 | Outpatient (REF) | payer MEDICAID, SELFPAY ==
[2023-12-20] VITALS (8 sets, daily range): BP systolic 115–130; BP diastolic 72–78; PULSE 65–79; RESP 16; TEMP 36.6; O2SAT 98
[2023-12-20] MEDS: Immun Glob G(IgG)/Gly/IGA Ov50 300 ML IV (10:00)
== END 2023-12-20 09:19 | disposition home or self-care (01) ==
LOC: HO.MDS 09:18
PROVIDERS: Visit Provider Internal Medicine Rheumatology
DX: M33.90 Dermatopolymyositis, unspecified, organ involvement unspecified (principal)
CPT/HCPCS: 96365; 96366; J1569

== ENCOUNTER 2025-03-23 14:40 | Outpatient (AMB) | payer MEDICAID, SELFPAY ==
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
[2025-03-23 14:43] VITALS: BP 138/80; PULSE 73; BMI 37.6
--- OUTSIDE RECORDS SUMMARY | 2025-03-23 15:12 | XMS_ITS | Clinical Summary ---
Author Organization [address] [facility] Address [address] [place] [address] Phone Care Team Providers Care Spinner Hydraulic Name Role Phone Kenny Del Valle Primary Care Provider [phone] Allergies No known active allergies Medications azaTHIOprine (IMURAN) 50 mg tablet Take 1 tablet (50 mg total) by mouth. Active betamethasone, augmented, (DIPROLENE) 0.05 % gel Apply topically 2 (two) times a day. Active omeprazole (PRILOSEC) 20 mg tablet,delayed release (DR/EC) Take 1 tablet (20 mg total) by mouth. 4 Active predniSONE (DELTASONE) 2.5 mg tablet Take 1 tablet (2.5 mg total) by mouth. Active immune globulin,gamma, IgG, (IMMUNE GLOBULIN, HUMAN,, IGG, IM) Inject into the shoulder, thigh, or buttocks. Active azaTHIOprine (IMURAN) 50 mg tablet Take 1 Tablet by mouth 3 times daily. Active bisacodyL (DULCOLAX) 5 mg EC tablet Take 2 tabs by mouth right before beginning bowel prep. Follow instructions given by office for timing. Active UNABLE TO FIND Med Name: Immune Globulin, Human, 30 GM/300ML Solution Inject as directed. Active omeprazole OTC (PriLOSEC OTC) 20 mg EC tablet Take 1 Tablet by mouth 2 times daily for 14 days. Active polyethylene glycol (PEG) 17 gram/dose oral powder polyethylene glycol (GoLYTELY) 236 g suspension Take 240 mL by mouth once for 1 dose. Take 4L by mouth once for one dose. May substitue any PEG. Starting at 6PM the night before your procedure drink 1 8oz glasses at your own pace until rectals run clear. Active predniSONE (DELTASONE) 2.5 mg tablet Take 1 Tablet by mouth 3 times daily. Active amLODIPine (NORVASC) 5 mg tablet Take 1 tablet (5 mg total) by mouth 1 (one) time each day. Active hydrOXYzine HCL (ATARAX) 25 mg tablet Take 1 tablet (25 mg total) by mouth at bedtime. Active Active Problems Problem Noted Date Diagnosed Date H. pylori infection 01/21/2024 Encounters Date Type Department Care Team Description 03/05/2025 10:10 AM EDT Office Visit Gastroenterology - [place] 175 [facility] 175 [facility] [address] [place] [address] Ashlee Kay PA Umbilical hernia without obstruction and without gangrene (Primary Dx); Fatty liver; LLQ abdominal pain from Last 3 Months Social History Tobacco Use Types Packs/Day Years Used Date Smoking Tobacco: Never Assessed Sex and Gender Information Value Date Recorded Sex Assigned at Not on file Legal Sex Male 5:36 AM EST Gender Identity Not on file Sexual Orientation Not on file Last Filed Vital Signs Vital Sign Reading Time Taken Comments Blood Pressure 118/70 03/05/2025 9:56 AM EDT Pulse 72 08/05/2024 10:18 AM EST Temperature - - Respiratory Rate - - Oxygen Saturation 98% 08/05/2024 10:18 AM EST Inhaled Oxygen Concentration - - Weight 93.9 kg (207 lb) 03/05/2025 9:56 AM EDT Height 157.5 cm (5' 2 ) 03/05/2025 9:56 AM EDT Body Mass Index 37.86 03/05/2025 9:56 AM EDT Plan of Treatment Health Maintenance Due Date Last Done Comments COVID-19 Vaccine (3 - Moderna risk series) 02/20/2021 01/23/2021, 12/25/2020 HIV Screening 08/27/2022 Social Influencers of Health Screening 08/27/2022 Depression Screening 11/08/2024 11/08/2023 Hypertension/CHF/CAD Annual BMP Blood Test 04/02/2025 04/02/2024 Influenza Vaccine (Season Ended) 2025 08/07/2023, 07/25/2022, 12/06/2021 Colorectal Cancer Screening: FIT-DNA (Cologuard) 02/07/2028 02/06/2025 Cholesterol Screening (Lipid Panel) 04/02/2029 04/02/2024, 04/02/2024, 06/04/2023, Additional history exists DTaP,Tdap,and Td Vaccines (2 - Td or Tdap) 12/07/2031 12/06/2021 Hepatitis C Screening Completed 01/16/2022 Colorectal Cancer Screening: Stool Based Tests (FOBT/FIT) Discontinued 07/31/2022 Pneumococcal Vaccine: Pediatrics (0 to 5 Years) and At-Risk Patients (6 to 64 Years) Completed 04/30/2023 Hepatitis B Vaccines Completed 07/03/2023, 04/30/20 23 HIB Vaccines Aged Out No longer eligi ble based on patient's age to complete this topic HPV Vaccines Aged Out No longer eligi ble based on patient's age to complete this topic Hepatitis A Vaccines Aged Out No long er eligible based on patient's age to complete this topic IPV Vaccines Aged Out No longer eligi ble based on patient's age to complete this topic MMR Vaccines Aged Out No longer eligi ble based on patient's age to complete this topic Meningococcal ACWY Vaccine Aged Out N o longer eligible based on patient's age to complete this topic Meningococcal B Vaccine Aged Out No l onger eligible based on patient's age to complete this topic RSV Immunization Patients Under 20 months Aged Out No longer eligible based on patient's age to complete this topic Varicella Vaccines Aged Out No longer eligible based on patient's age to complete this topic Insurance * Guarantor: Juan Randhawa Account Type Relation to Patient Date of Phone Billing Address Personal/Family Self 1975 [address] [place] [address] [place] - [place] Care Teams Spinner Hydraulic Relationship Specialty Start Date End Date Kenny Del Valle PA [address] [place] [address] PCP - General 09/20/23
--- OUTSIDE RECORDS SUMMARY | 2025-03-23 15:12 | XMS_ITS | Clinical Summary ---
Author Organization [facility] Address [address] [place] [address] Care Team Providers Care Bull Chain Operator Name Role Phone Kenny Del Valle Primary Care Provider [phone] Source Comments PLEASE NOTE, if this patient is a minor, it may be UNLAWFUL to discuss sensitive information that is contained in these records (such as FAMILY PLANNING, MENTAL HEALTH or SUBSTANCE ABUSE) with the minor patient's parent or other person without the patient's specific authorization.[facility] Allergies No known active allergies Medications fluocinonide (LIDEX) 0.05 % external solution APPLY TOPICALLY TO THE SCALP TWICE DAILY NEEDED FOR FLARES 11/23/19 22 Active alclometasone (ACLOVATE) 0.05 % cream APPLY TOPICALLY TO FACE TWICE DAILY NEEDED 15 g 1 09/13/20 23 Active azaTHIOprine (IMURAN) 50 mg tabletIndicatio ns:polymyositis Take 1 Tablet by mouth 2 (two) times daily Indications: chronic inflammation of muscles in the body called polymyositis 60 Tablet 2 09/13/20 23 Active robert.stockin g,thigh,reg,med Indications:Vitor ateral leg edema Use one pair of compression stockings daily during waking hours for compression goal 15-20 mmHg 4 Each 11/08/19 24 Active amLODIPine (NORVASC) 5 mg tabletIndicatio ns:Primary hypertension Take 1 Tablet by mouth once daily 90 Tablet 3 09/11/20 24 2024 Active predniSONE (DELTASONE) 1 mg tablet Take 3 mg by mouth 03/09/20 23 Active predniSONE (DELTASONE) 2.5 mg tablet Take 5 mg by mouth once daily Active azaTHIOprine (IMURAN) 50 mg tablet Take 1 Tablet by mouth 3 (three) times daily 03/09/20 23 Active polyethylene glycol, PEG, 3350 (GLYCOLAX) 17 gram/dose powder polyethylene glycol (GoLYTELY) 236 g suspension Take 240 mL by mouth once for 1 dose. Take 4L by mouth once for one dose. May substitue any PEG. Starting at 6PM the night before your procedure drink 1 8oz glasses at your own pace until rectals run clear. Active GAVILYTE-G 236-22.74-6.74 -5.86 gram solution As directed. 06/13/20 24 Active omeprazole (PRILOSEC) 20 mg tablet Take 20 mg by mouth 01/22/20 24 Active doxycycline (MONODOX) 100 mg capsule TAKE 1 CAPSULE TWICE A DAY WITH FOOD AND A FULL GLASS OF WATER 12/16/19 25 Active bisacodyL (DULCOLAX) 5 mg EC tablet Take 2 tabs by mouth right before beginning bowel prep. Follow instructions given by office for timing. Active betamethasone, augmented (DIPROLENE-AF) 0.05 % cream APPLY TO AFECTED AREAS ON SCALP TWICE A DAY NEEDED FLARES DECREASE USE SYMPTOMS IMPROVE. 12/16/19 25 Active betamethasone, augmented 0.05 % gel Apply topically twice a day Active hydrOXYzine HCL (ATARAX) 25 mg tabletIndicatio ns:Sleeping difficulties TAKE 1 TABLET BY MOUTH NIGHTLY AT BEDTIME NEEDED FOR ANXIETY OR SLEEP 90 Tablet 03/09/20 25 Active hydrOXYzine HCL (ATARAX) 25 mg tabletIndicatio ns:Sleeping difficulties TAKE 1 TABLET BY MOUTH NIGHTLY AT BEDTIME NEEDED FOR ANXIETY OR SLEEP 90 Tablet 12/12/19 25 2024 Discontinued Active Problems Problem Noted Date Diagnosed Date Hypertension 11/11/2024 Memory problem 11/11/2024 Skin irritation 11/11/2024 Night terrors 08/11/2024 Obstructive sleep apnea 08/11/2024 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) 07/25/2022 Elevated antinuclear antibody (ADELIA) level 2021 Anxiety 12/06/2021 Palpitations 12/06/2021 Encounters Date Type Department Care Team Description 01/29/2025 9:40 AM EDT Office Visit [facility] [address] [place] [address] Kenny Del Valle PA Zayas, Juan from Last 3 Months Immunizations Immunization Administration Dates Next Due Flu, Preservative Free 08/07/2023,07/25/2022, Hep B,adult,adjuvanted (HEPLISAV) 07/03/2023,03/2023 Moderna COVID-19 Vaccine, re d cap blue label, 12+ Primary Series 01/23/2021,12/25/2020 PNEUMOCOCCAL CONJUGATE PCV 20 (Prevnar) 04/30/20 23 TDAP 12/06/2021 ZOSTER VACCINE, RECOMBINANT (SHINGRIX) 3,04/30/2023 Family History Medical History Relation Name Comments Arthritis Father Depression Father Alzheimer's Disease Maternal Grandmother Alcohol/Drug Abuse Maternal Uncle Anxiety disorder Mother Depression Mother Diabetes Mother Hypertension Mother Anxiety disorder Sister 1 Depression Sister 1 Anxiety disorder Sister 2 Depression Sister 2 Relation Name Status Comments Father Maternal Grandmother Maternal Uncle Mother Alive Sister 1 Alive Sister 2 Alive Social History Tobacco Use Types Packs/Day Years Used Date Smoking Tobacco: Never Smokeless Tobacco: Never Tobacco Cessation:Counseling Given: Not Answered Alcohol Use Standard Drinks/Week Comments Not Currently 0 (1 standard drink = 0.6 oz pur e alcohol) Social Connections Answer Date Recorded Connectedness 2 11/08/2023 Financial Resource Strain Answer Date R ecorded Financial Resource Strain 1 2023 Stress Answer Date Recorded Stress 1 11/08/2023 Physical Activity Answer Date Recorded Physical Activity 0 09/09/2021 Food Insecurity Answer Date Recorded Food 1 11/08/2023 Transportation Needs Answer Date Record ed Transportation 1 11/08/2023 Housing Stability Answer Date Recorded Housing 1 11/08/2023 Safety and Environment Answer Date Ross rded Safety 1 11/08/2023 Utilities Answer Date Recorded Utilities 1 11/08/2023 Employment Answer Date Recorded Stress 0 12/12/2021 Sex and Gender Information Value Date Recorded Sex Assigned at Male 09/09/2021 11:46 AM PST Legal Sex Male 1:09 PM PDT Gender Identity Male 09/09/2021 11:46 AM PST Sexual Orientation Straight 09/09/2021 11 :46 AM PST Last Filed Vital Signs Vital Sign Reading Time Taken Comments Blood Pressure 143/87 01/29/2025 9:46 AM EDT Pulse 74 01/29/2025 9:46 AM EDT Temperature 36.9 C (98.4 F) 01/29/2025 9:46 AM EDT Respiratory Rate 18 01/29/2025 9:46 AM EDT Oxygen Saturation 93% 01/29/2025 9:46 AM EDT Inhaled Oxygen Concentration - - Weight 94.6 kg (208 lb 9.6 oz) 01/29/2025 9:46 A M EDT Height 157.5 cm (5' 2 ) 01/29/2025 9:46 AM EDT Body Mass Index 38.15 01/29/2025 9:46 AM EDT Plan of Treatment Health Maintenance Due Date Last Done Comments CT Colonography 2020 Flexible Sigmoidoscopy 2020 [id number] (3 - Moderna [facility] series) 02/20/2021 01/23/2021, 12/25/2020 Anxiety Screening 10/17/2023 10/17/2022 Alcohol and Drug Screen 09/24/2024 11/08/19, 04/30/2023, 12/06/2021 Depression Annual Screen 09/24/2024 11/08/2023 Annual Wellness (Adult): Ind icated (All Coverage) 05/21/2025 05/21/2024, 04/30/2023 Imm-Influenza (Season Ended) 2025, 07/25/2022, 12/06/2021 Tobacco Screening 01/29/2026 01/29/2025, 04/26/2022 FIT/gFOBT 02/06/2026 02/06/2025, 07/31/2022 Diabetes Screening 04/02/2027 04/02/2024, 0 01/20/2022, 01/09/2022, Additional history exists Lipid Screening 04/02/2027 04/02/2024, 05/25, 12/06/2021 Fecal DNA 02/07/2028 02/06/2025 Imm-DTaP/Tdap/Td (2 - Td or Tdap) 12/07/2031 022 Colonoscopy 06/15/2034 06/15/2024 Colorectal Cancer Screening 06/15/2034 Hepatitis C Screening Completed 01/16/2022, 022 Imm-Pneumococcal Completed 04/30/2023 Imm-Hepatitis B Completed 07/03/2023, 04/30/2023 Imm-Zoster, Recombinant Completed 07/03/2023, 04/30 HIV Screening Completed 04/02/2024, 01/09/2022 Procedures Procedure Name Priority Date/Time Associated Diagnosis Comments OTHER ORDERS SCANNED DOCUMENT 03/12/2025 3:00 AM EDT OTHER ORDERS SCANNED DOCUMENT 02/17/2025 3:00 AM EDT OTHER ORDERS SCANNED DOCUMENT 02/10/2025 3:00 AM EDT LAB COLOGUARD COLON CANCER SCREEN AMB Routine 02/06/2025 12:21 PM EDT Routine adult health maintenance Encounter for colorectal cancer screening LAB SCANNED DOCUMENT 01/06/2025 3:00 AM EDT HIV 1/2 AG & AB W/RFLX (4TH GEN) Routine 04/02/2024 10:08 AM EDT Dizziness COMPREHENSIVE METABOLIC PANEL Routine 04/02/2024 10:08 AM EDT Dizziness LIPID PANEL Routine 04/02/2024 10:08 AM EDT Dizziness ACUTE HEPATITIS PANEL W/RFLX Routine 01/16/2022 10:39 AM EDT from Last 3 Months or Most Recently Relevant to Health Maintenance Results * OTHER ORDERS SCANNED DOCUMENT (03/12/2025 3:00 AM EDT) Only the most recent of3 resultswithin the time period is included. 03/12/2025 3:00 AM EDT Kenny IBARRA SCAN OTHER ORDERS Final Result * Cologuard?? colon cancer screening (02/06/2025 12:21 PM EDT) COLOGUARD RESULT Negative Negative 02/14/20 12:43 PM EDT [facility] (CLIA #:[id number]) Comment: The Cologuard (TM) test was performed on this specimen. NEGATIVE TEST RESULT. A negative Cologuard result indicates a low likelihood that a colorectal cancer (CRC) or advanced adenoma (adenomatous polyps with more advanced pre-malignant features) is present. The chance that a person with a negative Cologuard test has a colorectal cancer is less than 1 in 1500 (negative predictive value >99.9%) or has an advanced adenoma is less than 5.3% (negative predictive value 94.7%). These data are based on a prospective cross-sectional study of 10,000 individuals at average risk for colorectal cancer who were screened with both Cologuard and colonoscopy. (Ganesh Barry al, N Engl J Med 2014;370(14):1286- 1297) The normal value (reference range) for this assay is negative. COLOGUARD RE-SCREENING RECOMMENDATION: Periodic colorectal cancer screening is an important part of preventive healthcare for asymptomatic individuals at average risk for colorectal cancer. Following a negative Cologuard result, the [place] [employer] Society and U.S. Multi-Society Task Force screening guidelines recommend a Cologuard re-screening interval of 3 years. References: [place] [employer] Guideline for Colorectal Cancer Screening: https://www.cancer.org/cancer/gfgvb-xmgkqf-vbfebs/rekqjrgiz-nozqohudj-wqsifqw/ac s-rec ommendations.html.; Live DK, Koko ANTHONY, Mazin VernonK, Colorectal Cancer Screening: Recommendations for Physicians and Patients from the U.S. Multi-Society Task Force on Colorectal Cancer Screening , Am J Gastroenterology 2017; 112:9347-6136. TEST DESCRIPTION: Composite algorithmic analysis of stool DNA-biomarkers with hemoglobin immunoassay. Quantitative values of individual biomarkers are not reportable and are not associated with individual biomarker result reference ranges. Cologuard is intended for colorectal cancer screening of adults of either sex, 45 years or older, who are at average-risk for colorectal cancer (CRC). Cologuard has been approved for use by the U.S. FDA. The performance of Cologuard was established in a cross sectional study of average-risk adults aged 50-84. Cologuard performance in patients ages 45 to 49 years was estimated by sub-group analysis of near-age groups. Colonoscopies performed for a positive result may find as the most clinically significant lesion: colorectal cancer [4.0%], advanced adenoma (including sessile serrated polyps greater than or equal to 1cm diameter) [20%] or non- advanced adenoma [31%]; or no colorectal neoplasia [45%]. These estimates are derived from a prospective cross-sectional screening study of 10,000 individuals at average risk for colorectal cancer who were screened with both Cologuard and colonoscopy. (Ganesh Levy et al, N Engl J Med 2014;370(14):5490-8130.) Cologuard may produce a false negative or false positive result (no colorectal cancer or precancerous polyp present at colonoscopy follow up). A negative Cologuard test result does not guarantee the absence of CRC or advanced adenoma (pre-cancer). The current Cologuard screening interval is every 3 years. ([place] [employer] Society and U.S. Multi-Society Task Force). Cologuard performance data in a 10,000 patient pivotal study using colonoscopy as the reference method can be accessed at the following location: www.Qwiki/results. Additional description of the Cologuard test process, warnings and precautions can be found at www.cologuard.com. Stool specimen (specimen) 02/06/2025 12:21 PM EDT 02/07/2025 12:22 PM EDT us Kenny IABRRA LAB BODY FLUIDS AND STOOLS AMB ULATORY Final Result [facility] (CLIA #:[id number]) [address] [place] [address], * LAB SCANNED DOCUMENT (01/06/2025 3:00 AM EDT) 01/06/2025 3:00 AM EDT us Kenny GONZALEZ LAB Final Result * HIV 1/2 AG & AB W/RFLX (4TH GEN) (04/02/2024 10:08 AM EDT) HIV AG/AB, 4TH GEN NON-REAC TIVE NON-REAC TIVE [facility] Comment: HIV-1 antigen and HIV-1/HIV-2 antibodies were not detected. There is no laboratory evidence of HIV infection. PLEASE NOTE: This information has been disclosed to you from records whose confidentiality may be protected by state law. If your state requires such protection, then the state law prohibits you from making any further disclosure of the information without the specific written consent of the person to whom it pertains, or as otherwise permitted by law. A general authorization for the release of medical or other information is NOT sufficient for this purpose. For additional information please refer to http://education.[employer]/faq/XZC977 (This link is being provided for informational/ educational purposes only.) The performance of this assay has not been clinically validated in patients less than 2 years old. Blood Blood / Unknown 04/02/2024 1 0:08 AM EDT 04/02/2024 10:09 AM EDT Jose Cruz Gross PA-C LAB - BLOOD DRAW Final Result [facility] [address] [address], [facility] [address] [address] * (ABNORMAL) LIPID PANEL (04/02/2024 10:08 AM EDT) Pathologist [facility] CHOLESTEROL, TOTAL 182 <200 mg/dL [facility] HDL CHOLESTEROL 44 > OR = 40 mg/dL [facility] TRIGLYCERIDES 137 <150 mg/dL [facility] LDL-CHOLESTEROL 113(H) 99 mg/dL (calc) [facility] Comment: Reference range: <100 Desirable range <100 mg/dL for primary prevention; <70 mg/dL for patients with CHD or diabetic patients with > or = 2 CHD risk factors. LDL-C is now calculated using the Isiah-Rdz calculation, which is a validated novel method providing better accuracy than the Friedewald equation in the estimation of LDL-C. Isiah SS et al. DAWSON. 2013;310(19): 3915-5109 (http://education.Tianpin.com/faq/IHP062) CHOL/HDLC RATIO 4.1 <5.0 (calc) [facility] NON-HDL CHOLESTEROL 138(H) <130 mg/dL (calc) [facility] Comment: For patients with diabetes plus 1 major ASCVD risk factor, treating to a non-HDL-C goal of <100 mg/dL (LDL-C of <70 mg/dL) is considered a therapeutic option. Blood Blood / Unknown 04/02/2024 1 0:08 AM EDT 04/02/2024 10:09 AM EDT Jose Cruz Gross PA-Sol LAB - BLOOD DRAW Final Result [facility] [address] [address], [facility] [address] [place] [address] * (ABNORMAL) COMPREHENSIVE METABOLIC PANEL (04/02/2024 10:08 AM EDT) GLUCOSE 69 65 - 99 mg/dL [facility] Comment: Fasting reference interval UREA NITROGEN (BUN) 11 7 - 25 mg/dL [facility] CREATININE (blood) 0.69 0.60 - 1.29 mg/dL [facility] EGFR 114 > OR = 60 mL/min/1. 73m2 [facility] BUN/CREATININE RATIO SEE NOTE: 6 - [facility] Comment: Not Reported: BUN and Creatinine are within reference range. SODIUM 135 135 - 146 mmol/L [facility] POTASSIUM 4.3 3.5 - 5.3 mmol/L [facility] CHLORIDE 99 98 - 110 mmol/L [facility] CARBON DIOXIDE 27 20 - 32 mmol/L [facility] CALCIUM 9.4 8.6 - 10.3 mg/dL [facility] PROTEIN, TOTAL 8.8(H) 6.1 - 8.1 g/dL [facility] ALBUMIN 4.0 3.6 - 5.1 g/dL [facility] GLOBULIN 4.8(H) 1.9 - 3.7 g/dL (calc) [facility] ALBUMIN/GLOBULI N RATIO 0.8(L) 1.0 - 2.5 (calc) [facility] BILIRUBIN, TOTAL 1.2 0.2 - 1.2 mg/dL [facility] ALKALINE PHOSPHATASE 57 36 - 130 U/L [facility] AST 33 10 - 40 U/L [facility] ALT 33 9 - 46 U/L [facility] Blood Blood / Unknown 04/02/2024 1 0:08 AM EDT 04/02/2024 10:09 AM EDT Jose Cruz Gross PA-C LAB - BLOOD DRAW Edited Resul t - Final [facility] [address] [address], [facility] [address] [address] * ACUTE HEPATITIS PANEL W/RFLX (01/16/2022 10:39 AM EDT) HEPATITIS A IGM ANTIBODY NON-REACT JORY NON-REACT JORY [facility] COMMENT [facility] HEPATITIS B SURFACE ANTIGEN NON-REACT JORY NON-REACT JORY [facility] HEPATITIS B CORE IGM ANTIBODY NON-REACT JORY NON-REACT JORY [facility] HEPATITIS C ANTIBODY NON-REACT JORY NON-REACT JORY [facility] SIGNAL TO CUT-OFF 0.01 <1.00 [facility] Comment: HCV antibody was non-reactive. There is no laboratory evidence of HCV infection. In most cases, no further action is required. However, if recent HCV exposure is suspected, a test for HCV RNA (test code 75261) is suggested. For additional information please refer to http://education.[employer]/faq/BIT97c7 (This link is being provided for informational/ educational purposes only.) 01/16/2022 10:3 9 AM EDT 01/16/2022 10:39 AM EDT Narrative [facility] - 01/17/2022 5:24 AM EDT For additional information, please refer to http://education.[employer]/faq/MJM275 (This link is being provided for informational/ educational purposes only.) Jose Cruz Ginny JARA LAB - BLOOD DRAW Final Result [facility] [address] [address], [facility] [address] [address] from Last 3 Months or Most Recently Relevant to Health Maintenance Insurance [facility] [address] [employer] Care Teams Bull Chain Operator Relationship Specialty Start Date End Date Kenny Del Valle PA [address] [place] [address] PCP - General FAMILY MEDICINEFRED 01/09/22
== END 2025-03-23 15:12 | disposition home or self-care (01) ==
LOC: HO.HCS 14:41
PROVIDERS: PCP Physician Assistant; Visit Provider Internal Medicine
DX: R00.2 Palpitations (principal); G47.30 Sleep apnea, unspecified; R07.9 Chest pain, unspecified
CPT/HCPCS: 99214

== ENCOUNTER → 2025-03-23 14:40 | Outpatient (BNVA) | payer MEDICAID, SELFPAY | PROVIDERS: PCP Physician Assistant; Visit Provider Internal Medicine | DX: R00.2 Palpitations (principal); G47.30 Sleep apnea, unspecified; R07.9 Chest pain, unspecified; K21.9 Gastro-esophageal reflux disease without esophagitis | CPT/HCPCS: 93005; 99212 ==

== ENCOUNTER → 2025-04-20 09:13 | Outpatient (REF) | payer MEDICAID, SELFPAY ==
--- NOTE | 2025-04-20 09:16 | HM_ITS ---
* Total monitoring time 2 days. * Underlying rhythm is sinus with an average rate of 69/Min. * Rare supraventricular ectopy. * Rare ventricular ectopy. * No significant pauses or high-grade AV blocks. * Rapid/fast heartbeat/palpitations in patient diary correlates with sinus rhythm. MTDD
--- OUTSIDE RECORDS SUMMARY | 2025-04-20 09:55 | XMS_ITS | Clinical Summary ---
Author Organization 175 [facility] Address [address] [place] [address] Phone Care Team Providers Care Starch Crab Name Role Phone Kenny Del Valle Primary Care Provider [phone] Allergies No known active allergies Medications azaTHIOprine [...] 10:10 AM EDT Office Visit Gastroenterology - [place] [facility] [address] [place] [address] Ashlee Kay PA Umbilical hernia [...] Influencers of Health Screening 08/27/2022 Depression Screening 09/24/2024 Hypertension/CHF/CAD Annual BMP Blood Test 04/02/2025 04/02/2024 Influenza Vaccine (#1) 2025 3, 07/25/2022, 12/06/2021 Colorectal Cancer Screening: FIT-DNA (Cologuard) 02/07/2028 02/06/2025 Cholesterol Screening (Lipid Panel) 04/02/2029 04/02/2024, 04/02/2024, 06/04/2023, Additional history exists DTaP,Tdap,and Td Vaccines (2 - Td or Tdap) 12/07/2031 12/06/2021 Hepatitis C Screening Completed 01/16/2022 Colorectal Cancer Screening: Stool Based Tests (FOBT/FIT) Discontinued 07/31/2022 Pneumococcal Vaccine: Pediatrics (0 to 5 Years) and At-Risk Patients (6 to 49 Years) Completed 04/30/2023 Hepatitis B Vaccines Completed 07/03/2023, 04/30/20 HIB Vaccines Aged Out No longer eligi [...] of Phone Billing Address Personal/Family Self 1975 [address] [place] [address] [place] - [place] Care Teams Starch Crab Relationship Specialty Start Date End Date Kenny Del Valle PA [address] [place] [address] PCP - General 09/20/23
--- OUTSIDE RECORDS SUMMARY | 2025-04-20 09:55 | XMS_ITS | Clinical Summary ---
Author Organization [facility] Address [address] [facility] 7[address] [place] [address] Care Team Providers Care Home Visitor Home Base Head Start Name Role Phone Unavailable Primary Care Provider Unavailabl e Encounters Date Type Department Care Team Description 04/14/2025 Population Health Risk Score [facility] (C3) Department [address] [facility] [address] [place] [id number] Provider, Population Health Generic from Last 3 Months Social History Tobacco Use Types Packs/Day Years Used Date Smoking Tobacco: Never Assessed Sex and Gender Information Value Date Recorded Sex Assigned at Not on file Legal Sex Male 9:22 PM EDT Gender Identity Not on file Sexual Orientation Not on file Plan of Treatment Health Maintenance Due Date Last Done Comments CT Colonography 1975 Colonoscopy 1975 Colorectal Cancer Screening 1975 Depression Screening 1975 FIT DNA/Cologuard 1975 FIT 1975 FOBT 1975 HIV Screening 1975 Lipid Panel 1975 SDOH Screening 1975 Sigmoidoscopy 1975 Disability Screening 1975 Alcohol/Substance Use Screening 1987 Tobacco Screening 1987 Family Planning (PISQ) 1990 Hepatitis C Screening 1993 DTaP/Tdap/Td Vaccines (1 - Tdap) 1994 Hepatitis B Vaccines (1 of 3 - 19+ 3-dose series) 1994 COVID-19 Vaccine ( - 2023-2 5 season) 2024 Influenza Vaccine (#1) 2025 Zoster Vaccines (1 of 2) 2025 RSV Patients and Pa tients Aged 60 years or older (1 - 1-dose 75+ series) 2050 HIB Vaccines Aged Out No longer eligi [...] patient's age to complete this topic Meningococcal Vaccine Aged Out No loraine angelina eligible based on patient's age to complete this topic Pneumococcal Vaccine: Pediat rics (0 to 5 Years) and At-Risk Patients (6 to 49) Years Aged Out No longer eligible b ased on patient's age to complete this topic RSV under 20 months Aged Out No longe r eligible based on patient's age to complete this topic Rotavirus Vaccines Aged Out No longer eligible based on patient's age to complete this topic
--- OUTSIDE RECORDS SUMMARY | 2025-04-20 09:55 | XMS_ITS | Clinical Summary ---
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 Role Phone Kenny Del Valle Primary Care Provider [phone] Source Comments PLEASE NOTE, if this patient [...] THE SCALP TWICE DAILY NEEDED FOR FLARES 2 Active alclometasone (ACLOVATE) 0.05 % cream APPLY TOPICALLY TO FACE TWICE DAILY NEEDED 15 g 1 3 Active azaTHIOprine (IMURAN) 50 mg tabletIndication s:polymyositis Take 1 Tablet by mouth 2 (two) times daily Indications: chronic inflammation of muscles in the body called polymyositis 60 Tablet 2 3 Active robert.stocking ,thigh,reg,medIn dications:Bilate ral leg edema Use one pair of compression stockings daily during waking hours for compression goal 15-20 mmHg 4 Each 4 Active amLODIPine (NORVASC) 5 mg tabletIndication s:Primary hypertension Take 1 Tablet by mouth once daily 90 Tablet 3 4 025 Active predniSONE (DELTASONE) 1 mg tablet Take 3 mg by mouth 3 Active predniSONE (DELTASONE) 2.5 mg tablet Take 5 mg by mouth once daily Active azaTHIOprine (IMURAN) 50 mg tablet Take 1 Tablet by mouth 3 (three) times daily 3 Active polyethylene glycol, PEG, 3350 (GLYCOLAX) 17 [...] GAVILYTE-G 236-22.74-6.74 -5.86 gram solution As directed. 4 Active omeprazole (PRILOSEC) 20 mg tablet Take 20 mg by mouth 4 Active doxycycline (MONODOX) 100 mg capsule TAKE 1 CAPSULE TWICE A DAY WITH FOOD AND A FULL GLASS OF WATER 5 Active bisacodyL (DULCOLAX) 5 mg EC tablet Take 2 tabs by mouth right before beginning bowel prep. Follow instructions given by office for timing. Active betamethasone, augmented (DIPROLENE-AF) 0.05 % cream APPLY TO AFECTED AREAS ON SCALP TWICE A DAY NEEDED FLARES DECREASE USE SYMPTOMS IMPROVE. 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 Fatigue 05/05/2024 Loud snoring 05/05/2024 Helicobacter pylori infection 01/21/2024 Dermatomyositis ([facility]) 07/25/2022 Elevated antinuclear antibody (ADELIA) level 2021 Anxiety 12/06/2021 Palpitations 12/06/2021 Encounters Date Type Department Care Team Description 01/29/2025 9:40 AM EDT Office Visit [facility] [address] [place] [address] Kenny Del Valle PA Zayas, Juan from Last 3 Months Immunizations Immunization Administration Dates Next Due Flu, Preservative Free 08/07/2023,07/25/2022, Hep B,adult,adjuvanted (HEPLISAV) 07/03/2023,03/2023 Moderna COVID-19 Vaccine, re d cap blue label, 12+ Primary Series 01/23/2021,12/25/2020 PNEUMOCOCCAL CONJUGATE PCV 20 (Prevnar 20) 04/30 TDAP 12/06/2021 ZOSTER VACCINE, RECOMBINANT (SHINGRIX) ,04/30/2023 Family History Medical History Relation Name Comments [...] Comments CT Colonography 2020 Flexible Sigmoidoscopy 2020 [id number] (3 - Moderna ri sk series) 02/20/2021 01/23/2021, 12/25/2020 Anxiety Screening 10/17/2023 10/17/2022 Alcohol and Drug Screen 09/24/2024 11/08/19 24, 04/30/2023, 12/06/2021 Depression Annual Screen 09/24/2024 11/08/2023 Annual Wellness (Adult): Ind icated (All Coverage) 05/21/2025 05/21/2024, 04/30/2023 Imm-Influenza (#1) 2025 08/07/2023, 1 09/24/2021, 12/06/2021 Tobacco Screening 01/29/2026 01/29/2025, 04/26/2022 FIT/gFOBT 02/06/2026 02/06/2025, 07/31/2022 Diabetes Screening 04/02/2027 04/02/2024, 0 01/20/2022, 01/09/2022, Additional history exists Lipid Screening 04/02/2027 04/02/2024, 0909/2022, 12/06/2021 Fecal DNA 02/07/2028 02/06/2025 Imm-DTaP/Tdap/Td (2 - Td or Tdap) 12/07/2031 022 Colonoscopy 06/15/2034 06/15/2024 Colorectal Cancer Screening 06/15/2034 Hepatitis C Screening Completed 01/16/2022, 022 Imm-Pneumococcal Completed 04/30/2023 Imm-Hepatitis B Completed 07/03/2023, 04/30/2023 Imm-Zoster, Recombinant Completed 07/03/2023, 04/30 HIV Screening Completed 04/02/2024, 01/09/2022 Procedures Procedure Name Priority Date/Time Associated Diagnosis Comments OTHER ORDERS SCANNED DOCUMENT 03/30/2025 3:00 AM EDT REFERRAL SCANNED DOCUMENT 03/23/2025 3:00 AM EDT OTHER ORDERS SCANNED DOCUMENT 03/12/2025 3:00 AM EDT OTHER ORDERS SCANNED DOCUMENT 02/17/2025 3:00 AM EDT OTHER ORDERS SCANNED DOCUMENT 02/10/2025 3:00 AM EDT LAB COLOGUARD COLON CANCER SCREEN AMB Routine 02/06/2025 12:21 PM EDT Routine adult health maintenance Encounter for colorectal cancer screening HIV 1/2 AG & AB W/RFLX (4TH GEN) Routine 04/02/2024 10:08 AM EDT Dizziness COMPREHENSIVE METABOLIC PANEL Routine 04/02/2024 10:08 AM EDT Dizziness LIPID PANEL Routine 04/02/2024 10:08 AM EDT Dizziness ACUTE HEPATITIS PANEL W/RFLX Routine 01/16/2022 10:39 AM EDT from Last 3 Months or Most Recently Relevant to Health Maintenance Results * OTHER ORDERS SCANNED DOCUMENT (03/30/2025 3:00 AM EDT) Only the most recent of4 resultswithin the time period is included. 03/30/2025 3:00 AM EDT us Kenny IBARRA SCAN OTHER ORDERS Final Result * REFERRAL SCANNED DOCUMENT (03/23/2025 3:00 AM EDT) 03/23/2025 3:00 AM EDT us Kenny IBARRA SCAN REFERRAL Final Result * Cologuard?? colon cancer screening (02/06/2025 12:21 PM EDT) COLOGUARD RESULT Negative Negative 02/14/20 12:43 PM EDT [facility] (CLIA #:[id number]) Comment: The Cologuard (TM) test was performed [...] cancer. Following a negative Cologuard result, the [place] Cancer Society and U.S. Multi-Society Task Force screening guidelines recommend a Cologuard re-screening interval of 3 years. References: [place] Cancer Society Guideline for Colorectal Cancer Screening: https://www.cancer.org/cancer/iczen-vohumc-tliafk/rjqzlepcu-beicwphnn-vqoqchk/ac s-rec ommendations.html.; Live DK, Koko CR, Mazin VernonK, Colorectal Cancer Screening: Recommendations for Physicians and Patients from the U.S. Multi-Society Task Force on Colorectal Cancer Screening , Am J Gastroenterology 2017; 112:0765-5199. TEST DESCRIPTION: Composite algorithmic analysis of stool [...] (Ganesh Barry al, N Engl J Med 2014;370(14):0753-6019.) Cologuard may produce a false negative or false positive result (no colorectal cancer or precancerous polyp present at colonoscopy follow up). A negative Cologuard test result does not guarantee the absence of CRC or advanced adenoma (pre-cancer). The current Cologuard screening interval is every 3 years. ([employer] Cancer Society and U.S. Multi-Society Task Force). Cologuard performance data in a 10,000 patient pivotal study using colonoscopy as the reference method can be accessed at the following location: www.[employer].innocutis/results. Additional description of the Cologuard test process, warnings and precautions can be found at www.HealthSynchogStayfilmrd.com. Stool specimen (specimen) 02/06/2025 12:21 PM EDT 02/07/2025 12:22 PM EDT us Kenny IBARRA LAB BODY FLUIDS AND STOOLS AMB ULATORY Final Result [facility] (CLIA #:[id number]) [address] [place] [address], * HIV 1/2 AG & AB W/RFLX (4TH GEN) (04/02/2024 10:08 AM EDT) HIV AG/AB, 4TH GEN NON-REAC TIVE NON-REAC TIVE [facility] Comment: HIV-1 antigen and HIV-1/HIV-2 antibodies were [...] purpose. For additional information please refer to http://education.Flipzu/faq/FYT561 (This link is being provided for informational/ educational purposes only.) The performance of this assay has not been clinically validated in patients less than 2 years old. Blood Blood / Unknown 04/02/2024 1 0:08 AM EDT 04/02/2024 10:09 AM EDT Jose Cruz Gross PA-C LAB - BLOOD DRAW Final Result [facility] [address] [address], [facility] [address] [address] * (ABNORMAL) LIPID PANEL (04/02/2024 10:08 AM EDT) Pathologist [facility] CHOLESTEROL, TOTAL 182 <200 mg/dL [facility] HDL CHOLESTEROL 44 > OR = 40 mg/dL [facility] TRIGLYCERIDES 137 <150 mg/dL [facility] LDL-CHOLESTEROL 113(H) 99 mg/dL (calc) [facility] Comment: Reference range: <100 Desirable range <100 mg/dL for primary prevention; <70 mg/dL for patients with CHD or diabetic patients with > or = 2 CHD risk factors. LDL-C is now calculated using the Arsalan calculation, which is a validated novel method providing better accuracy than the Friedewald equation in the estimation of LDL-C. Isiah JACOBSON et al. DAWSON. 2013;310(19): 7275-5675 (http://education.Critical Media/faq/OMU066) CHOL/HDLC RATIO 4.1 <5.0 (calc) [facility] NON-HDL CHOLESTEROL 138(H) <130 mg/dL (calc) [facility] Comment: For patients with diabetes plus 1 major ASCVD risk factor, treating to a non-HDL-C goal of <100 mg/dL (LDL-C of <70 mg/dL) is considered a therapeutic option. Blood Blood / Unknown 04/02/2024 1 0:08 AM EDT 04/02/2024 10:09 AM EDT us Jose Cruz Gross PA-C LAB - BLOOD DRAW Final Result [facility] [address] [address], [facility] [address] [place] [address] * (ABNORMAL) COMPREHENSIVE METABOLIC PANEL (04/02/2024 10:08 AM EDT) [facility] GLUCOSE 69 65 - 99 mg/dL [facility] Comment: Fasting reference interval UREA NITROGEN (BUN) 11 7 - 25 mg/dL [facility] CREATININE (blood) 0.69 0.60 - 1.29 mg/dL [facility] EGFR 114 > OR = 60 mL/min/1. 73m2 [facility] BUN/CREATININE RATIO SEE NOTE: [facility] Comment: Not Reported: BUN and Creatinine are within reference range. SODIUM 135 135 - 146 mmol/L [facility] POTASSIUM 4.3 3.5 - 5.3 mmol/L [facility] CHLORIDE 99 98 - 110 mmol/L [facility] CARBON DIOXIDE 27 20 - 32 mmol/L [facility] CALCIUM 9.4 8.6 - 10.3 mg/dL [facility] PROTEIN, TOTAL 8.8(H) 6.1 - 8.1 g/dL [facility] ALBUMIN 4.0 3.6 - 5.1 g/dL [facility] GLOBULIN 4.8(H) 1.9 - 3.7 g/dL (calc) [facility] ALBUMIN/GLOBULI N RATIO 0.8(L) 1.0 - 2.5 (calc) [facility] BILIRUBIN, TOTAL 1.2 0.2 - 1.2 mg/dL [facility] ALKALINE PHOSPHATASE 57 36 - 130 U/L [facility] AST 33 10 - 40 U/L [facility] ALT 33 9 - 46 U/L [facility] Blood Blood / Unknown 04/02/2024 1 0:08 AM EDT 04/02/2024 10:09 AM EDT Jose Cruz Gross PA-C LAB - BLOOD DRAW Edited Resul t - Final [facility] [address] [address], [facility] [address] [address] * ACUTE HEPATITIS PANEL W/RFLX (01/16/2022 10:39 AM EDT) HEPATITIS A IGM ANTIBODY NON-REACT JORY NON-REACT JORY [facility] COMMENT [facility] HEPATITIS B SURFACE ANTIGEN NON-REACT JORY NON-REACT JORY [facility] HEPATITIS B CORE IGM ANTIBODY NON-REACT JORY NON-REACT JORY [facility] HEPATITIS C ANTIBODY NON-REACT JORY NON-REACT JORY [facility] SIGNAL TO CUT-OFF 0.01 <1.00 [facility] Comment: HCV antibody was non-reactive. There is no laboratory evidence of HCV infection. In most cases, no further action is required. However, if recent HCV exposure is suspected, a test for HCV RNA (test code 48198) is suggested. For additional information please refer to http://[employer].Flipzu/faq/STU87g3 (This link is being provided for informational/ educational purposes only.) 01/16/2022 10:3 9 AM EDT 01/16/2022 10:39 AM EDT Narrative [facility] - 01/17/2022 5:24 AM EDT For additional information, please refer to http://[employer].Flipzu/faq/IIA468 (This link is being provided for informational/ educational purposes only.) us Jose Cruz Gross PA-C LAB - BLOOD DRAW Final Result [facility] [address] [facility] [address] [place] [address], [facility] [address] [facility] [address] [address] from Last 3 Months or Most Recently Relevant to Health Maintenance Insurance [place] [employer] [facility] [employer] [address] [employer] Care Teams Food Service Utility Worker Relationship Specialty Start Date End Date Kenny Del Valle PA [address] [place] [address] PCP - General FAMILY MEDICINEFRED 01/09/22
== END ==
LOC: HO.CARD 09:13
PROVIDERS: Visit Provider Nurse Practitioner Family
DX: R00.2 Palpitations (principal)
CPT/HCPCS: 93225

== ENCOUNTER → 2025-04-20 09:16 | Outpatient (BNV) | payer MEDICAID, SELFPAY | PROVIDERS: Visit Provider Internal Medicine | DX: I47.10 Supraventricular tachycardia, unspecified (principal); I49.3 Ventricular premature depolarization | CPT/HCPCS: 93227 ==